=== PATIENT | male | born 1945 | race Caucasian/White ===

== ENCOUNTER 2021-12-20 09:29 | Emergency (ER) | payer MEDICARE, OTHER ==
--- NOTE | 2021-12-20 09:38 | ERPHSYRPT ---
- History of Present Illness Time Seen by Provider: 12/20/21 09:38 Source: patient Exam Limitations: no limitations Physician History: This is a 76-year-old white male patient of Dr. Pacheco who presents with right posterior lateral rib pain. Patient fell on Thursday prior to this evaluation and hit his right posterior lateral ribs. Patient states that he normally has a cough which is productive but clear. He has been coughing in the last few days and he is having significant pain in the area where he hit his ribs. Of concern, his sputum changed to a yellow color, thicker type of sputum. Patient only takes an aspirin a day. He is not on any other medications per his report. Timing/Duration: day(s) (3) Severity: mild Modifying Factors: Improves With: movement (To moderate) Associated Symptoms: cough, No chills, No fever Allergies/Adverse Reactions: No Known Drug Allergies Allergy (Verified 12/20/21 09:45) Home Medications: Aspirin EC 81 mg [Ecotrin 81 mg] 81 mg PO DAILY 12/20/21 [History] Travel Risk - International Travel Have you traveled outside of the country in past 3 weeks: No - Coronavirus Screening Are you exhibiting any of the following symptoms?: No Close contact with a COVID-19 positive Pt in past 14-21 Days: No - Review of Systems Constitutional: No Symptoms Eyes: No Symptoms Ears, Nose, & Throat: No Symptoms Respiratory: Cough, No Dyspnea Cardiac: No Symptoms Abdominal/Gastrointestinal: No Symptoms Genitourinary Symptoms: No Symptoms Musculoskeletal: Fall, Injury (Right posterior lateral ribs) Skin: Other (Ecchymosis of skin overlying the right posterior lateral rib area) Neurological: No Symptoms Psychological: No Symptoms Endocrine: No Symptoms Hematologic/Lymphatic: No Symptoms Immunological/Allergic: No Symptoms All Other Systems: Reviewed and Negative - Past Medical History Pertinent Past Medical History: No - Nursing Vital Signs Nursing Vital Signs: Initial Vital Signs Temperature 96.7 F 12/20/21 09:36 Pulse Rate 96 H 12/20/21 09:36 Respiratory Rate 22 12/20/21 09:36 Blood Pressure 152/99 12/20/21 09:36 O2 Sat by Pulse Oximetry 96 12/20/21 09:36 Pain Scale Pain Intensity 4 - Physical Exam General Appearance: no apparent distress, alert, thin Eye Exam: PERRL/EOMI, eyes nml inspection Ears, Nose, Throat Exam: normal ENT inspection, moist mucous membranes Neck Exam: normal inspection, non-tender, supple, full range of motion Respiratory Exam: normal breath sounds, lungs clear, airway intact, No chest tenderness, No respiratory distress Cardiovascular Exam: regular rate/rhythm, normal heart sounds, normal peripheral pulses Gastrointestinal/Abdomen Exam: soft, normal bowel sounds, No tenderness Rectal Exam: not done Back Exam: normal range of motion, vertebral tenderness, other (Tenderness in the right posterior lateral rib area. There is ecchymosis that is mild in that area as well.), No CVA tenderness Extremity Exam: normal inspection, normal range of motion, pelvis stable Neurologic Exam: alert, oriented x 3, cooperative, moisture tester II-XII nml as tested, normal mood/affect, nml cerebellar function, nml station & gait, sensation nml Skin Exam: ecchymosis (Of skin as above) Lymphatic Exam: No adenopathy SpO2 Interpretation: normal O2 Delivery: Room Air - Course Nursing assessment & vital signs reviewed: Yes Ordered Tests: Active Orders 24 hr Category Date Time Status CHEST 2 VIEWS (PA AND LAT) Stat Exams 12/20/21 10:02 Completed RIBS UNILATERAL Stat Exams 12/20/21 09:58 Completed - Progress Progress: unchanged, pain not gone completely Progress Note: 12/20/21 10:48 Chest x-ray shows no acute cardiopulmonary process. Right rib x-rays show nondisplaced acute rib fracture anterior seventh rib. There is also minimally displaced acute fractures of the posterior eighth through 12th rib without hemothorax or pneumothorax present. Counseled pt/family regarding: diagnosis, need for follow-up, rad results - Departure Departure Disposition: Home Clinical Impression: Right rib fracture Condition: Stable Critical Care Time: No Referrals: VIDHYA PACHECO MD [Primary Care Provider] - Follow up/PCP as directed Additional Instructions: Take your antibiotics and pain medication as prescribed. Do not ingest alcohol while taking these medications. Follow-up with your primary care physician for further management. Prescriptions: Oxycodone HCl/Acetaminophen [Percocet 5-325 mg Tablet] 1 each PO Q8H PRN PRN #6 tablet MDD 3 PRN Reason: Moderate To Severe Pain Cefdinir 300 mg PO BID #14 cap
--- NOTE | 2021-12-20 10:33 | XRAY ---
Indication: Pain following fall 4 days ago. Comparison: None 2 view right ribs demonstrates nondisplaced acute fracture anterior 7 rib and minimally displaced acute fractures posterior 8-12 ribs without hemothorax or pneumothorax. Elsewhere osteopenia, old posterior 7 rib fracture, and mild degenerative changes throughout spine.
--- NOTE | 2021-12-20 10:36 | XRAY ---
Indication: Pain following fall 4 days ago. Cough. Comparison: November 30, 2021. PA/lateral chest remains hyperinflated and clear. Heart not enlarged. Bony thorax intact again with osteopenia, degenerative changes, scoliosis, remote T6 compression fracture, and bilateral rib fractures. Impression: Right acute rib fractures reported separately. Otherwise nonacute hyperinflated chest.
[2021-12-20 11:37] VITALS: BP 148/76; PULSE 88; O2SAT 97
== END 2021-12-20 11:37 | disposition home or self-care (01) ==
LOC: ED 09:29
DX: S22.41XA Multiple fractures of ribs, right side, initial encounter for closed fracture (principal); W19.XXXA Unspecified fall, initial encounter; R07.81 Pleurodynia; R05.3 Chronic cough; Z79.891 Long term (current) use of opiate analgesic
CPT/HCPCS: 71046; 71100; 99283

== ENCOUNTER 2024-01-17 16:42 | Inpatient (IN) | payer MEDICARE ==
[2024-01-17] MEDS ORDERED: DUONEB 0.5-3 MG/3 ml Neb IH ONE (16:49)
[2024-01-17] MEDS: DUONEB 0.5-3 MG/3 ml Neb IH ONE (17:00)
[2024-01-17] MEDS: solu-MEDROL 125 MG, Sterile H2O 10 ml 2 ML IV ONE (17:06)
[2024-01-17] MEDS ORDERED: Sterile H2O 10 ml IJ ONE (17:06)
[2024-01-17] MEDS ORDERED: solu-MEDROL ONE (17:06)
--- NOTE | 2024-01-17 17:10 | ERPHSYRPT ---
- History of Present Illness Time Seen by Provider: 01/17/24 16:59 Source: patient Exam Limitations: no limitations Patient Subjective Stated Complaint: PT states "I have been gettting short of breath on and off all month. I cannot lay flat and I really get short of breath when I move. Triage Nursing Assessment: Pt presented alert and oriented X 3, skin pwd. Pt tachypniec pt able to speak in five to six word sentences. PT gets more short of breath the more he speaks. Physician History: 78 years old male with history of hypertension, COPD presented in the ER with almost 1 month history of increasing dyspnea on exertion. Patient reports getting short of breath with few steps and now getting short of breath even at resting. He cannot lie flat because he cannot breathe and has to recline up. Reports some substernal chest discomfort off and on as well. Does report having minimal productive cough. No fever or chills reported. Denies any history of coronary artery disease or congestive heart failure. Denies any fever or chills. Patient oxygen saturation is 86% on room air on presentation, tachypneic and can hardly complete 1 full sentence. Placed on 4 L oxygen with saturation improved in upper 90s and feeling much better after DuoNeb. Allergies/Adverse Reactions: No Known Drug Allergies Allergy (Verified 12/20/21 09:45) Home Medications: Aspirin EC 81 mg [Ecotrin 81 mg] 81 mg PO DAILY 01/17/24 [History] Hx Tetanus, Diphtheria Vaccination/Date Given: No Hx Influenza Vaccination/Date Given: No Hx Pneumococcal Vaccination/Date Given: No Immunizations Up to Date: No Travel Risk - International Travel Have you traveled outside of the country in past 3 weeks: No - Emerging Infectious Disease Are you exhibiting symptoms associated with any current EIDs: No - Review of Systems Constitutional: Fatigue Eyes: No Symptoms Ears, Nose, & Throat: No Symptoms Respiratory: Cough, Dyspnea, Dyspnea on Exertion (MCLEAN) Cardiac: Chest Pain Abdominal/Gastrointestinal: No Symptoms Genitourinary Symptoms: No Symptoms Musculoskeletal: Back Pain Skin: No Symptoms Neurological: No Symptoms Psychological: No Symptoms Endocrine: No Symptoms Hematologic/Lymphatic: No Symptoms - Past Medical History Pertinent Past Medical History: Yes Other Medical History: stage 4 prostate cancer - Past Surgical History Past Surgical History: No - Social History Smoking Status: Current some day smoker How long have you smoked: years Exposure to second hand smoke: Yes Drug Use: marijuana Patient Lives Alone: Yes - Social Determinants of Health Will the patient participate in the screening: Declined to provide - Nursing Vital Signs Nursing Vital Signs: Initial Vital Signs Temperature 96.8 F 01/17/24 16:43 Pulse Rate 101 H 01/17/24 16:43 Respiratory Rate 28 H 01/17/24 16:43 Blood Pressure 129/83 01/17/24 16:43 O2 Sat by Pulse Oximetry 86 L 01/17/24 16:43 Pain Scale Pain Intensity 0 - Physical Exam General Appearance: moderate distress Eye Exam: PERRL/EOMI Ears, Nose, Throat Exam: hearing grossly normal Neck Exam: normal inspection, supple, full range of motion Respiratory Exam: respiratory distress, diminished breath sounds, accessory muscle use, rhonchi, wheezing Cardiovascular/Chest Exam: normal heart sounds, regular rate/rhythm Abdominal/Gastrointestinal Exam: soft, normal bowel sounds, No tenderness Extremity Exam: non-tender, normal range of motion Neurologic Exam: alert, oriented x 3, cooperative, acid dipper II-XII nml as tested Skin Exam: normal color SpO2 Interpretation: O2 applied SpO2: 100 O2 Delivery: Nasal Cannula (4 L) Ordered Tests: Medication Summary Generic Name Dose Route Start Last Admin Trade Name Freq PRN Reason Stop Dose Admin Acetaminophen 325 mg 01/17/24 23:42 Acetaminophen 325 Mg Tablet PO 02/16/24 23:41 Q4H PRN PRN PAIN, FEVER, HEADACHE Albuterol/Ipratropium 3 ml 01/18/24 01:00 01/21/24 19:04 Ipratropium/Albuterol Sulfate 3 Ml Ampul.Neb IH 02/17/24 00:59 3 ml Q6HRT JACQUE Administration Aspirin 81 mg 01/18/24 10:00 01/21/24 10:03 Aspirin 81 Mg Tablet.Ec PO 02/17/24 09:59 81 mg DAILY JACQUE Administration Docusate Sodium 100 mg 01/19/24 22:00 01/21/24 22:04 Docusate Sodium 100 Mg Capsule PO 02/18/24 21:59 Not Given BID JACQUE Furosemide 40 mg 01/18/24 08:00 01/21/24 19:32 Furosemide 40 Mg/4 Ml Vial IV 02/17/24 07:59 40 mg Q12H JACQUE Administration Heparin Sodium (Beef Lung) 2,000 unit 01/21/24 14:46 Heparin 5000 Units/0.5 Ml 5,000 Unit/0.5 Ml Syr IV 02/20/24 14:45 PRN PRN PTT < 35 Ceftriaxone Sodium 1 gm in 100 mls @ 200 mls/hr 01/18/24 22:00 01/21/24 22:00 Rocephin 1 Gm / 100 Ml Nacl IV 02/17/24 21:59 200 mls/hr Q24H22 JACQUE Administration Amiodarone HCl/Dextrose 360 mg in 200 mls @ 33 mls/hr 01/21/24 11:30 01/21/24 17:21 Nexterone 360 Mg/200 Ml Bag IV 02/20/24 11:29 17 mls/hr .Q6H4M JACQUE 17 mls/hr Titration Protocol Heparin Sodium/Dextrose 25,000 units in 250 mls @ 8.04 mls/hr 01/21/24 14:00 01/21/24 18:29 Heparin 25,000 Units/D5w: Use Order Set Margarita IV 02/20/24 13:59 12 units/kg/hr .Q24H JACQUE 8.04 mls/hr Titration Protocol 12 UNITS/KG/HR Lisinopril 5 mg 01/21/24 10:00 01/21/24 10:03 Lisinopril 5 Mg Tablet PO 02/20/24 09:59 5 mg DAILY JACQUE Administration Metoprolol Succinate 12.5 mg 01/21/24 10:00 01/21/24 10:02 Metoprolol Succinate 25 Mg Xl Tab PO 02/20/24 09:59 12.5 mg DAILY JACQUE Administration Pantoprazole Sodium 40 mg 01/18/24 10:00 01/21/24 10:02 Protonix (Pantoprazole) 40 Mg Tablet PO 02/17/24 09:59 40 mg DAILY JACQUE Administration Polyethylene Glycol 17 gm 01/19/24 17:59 01/20/24 09:50 Polyethylene Glycol 3350 17 Gm Packet PO 02/18/24 17:58 17 gm QDP PRN Administration CONSTIPATION Prednisone 20 mg 01/20/24 10:00 01/21/24 22:00 Prednisone 20 Mg Tablet PO 02/19/24 09:59 20 mg BID JACQUE Administration Simvastatin 40 mg 01/20/24 22:00 01/21/24 22:00 Simvastatin 20 Mg Tablet PO 02/19/24 21:59 40 mg HS JACQUE Administration Spironolactone 12.5 mg 01/22/24 10:00 Spironolactone 25 Mg Tablet PO 02/21/24 09:59 DAILY JACQUE Discontinued Medications Generic Name Dose Route Start Last Admin Trade Name Jessica PRN Reason Stop Dose Admin Albuterol/Ipratropium Confirm 01/17/24 16:49 Ipratropium/Albuterol Sulfate 3 Ml Ampul.Neb Administered 01/17/24 16:50 Dose 3 ml IH .STK-MED ONE Albuterol/Ipratropium 3 ml 01/17/24 16:59 01/17/24 17:00 Ipratropium/Albuterol Sulfate 3 Ml Ampul.Neb IH 01/17/24 17:00 3 ml STAT ONE Administration Methylprednisolone Sodium 0 mg 01/17/24 16:59 01/17/24 17:06 Succinate 125 mg/ Sterile IV 01/17/24 17:00 125 mg Water 2 ml STAT ONE Administration Methylprednisolone Sodium 0 mg 01/18/24 10:00 01/19/24 22:18 Succinate 20 mg/ Sterile Water IV 02/17/24 09:59 10 mg 1 ml Q12HT JACQUE Administration Digoxin Confirm 01/21/24 11:16 Digoxin 0.5 Mg/2 Ml Injection Administered 01/21/24 11:17 Dose 0.5 mg .ROUTE .STK-MED ONE Enoxaparin Sodium 40 mg 01/18/24 10:00 01/21/24 10:02 Enoxaparin Sodium 40 Mg/0.4 Ml Syringe SQ 02/17/24 09:59 40 mg DAILY JACQUE Administration Furosemide 40 mg 01/17/24 22:31 01/17/24 22:41 Furosemide 40 Mg/4 Ml Vial IV 01/17/24 22:32 Not Given STAT ONE Furosemide 40 mg 01/17/24 23:45 01/18/24 00:13 Furosemide 40 Mg/4 Ml Vial IV 02/16/24 23:44 Not Given Q12H JACQUE Heparin Sodium (Beef Lung) 4,000 unit 01/21/24 13:51 01/21/24 14:15 Heparin 5000 Units/0.5 Ml 5,000 Unit/0.5 Ml Syr 60 unit/kg (4000 unit) 01/21/24 13:52 4,000 unit IV Administration STAT STA Azithromycin 500 mg in 250 mls @ 250 mls/hr 01/17/24 19:49 01/17/24 21:37 Zithromax 500 Mg/ 250 Ml Nacl Premix IV 01/17/24 20:48 Infused STAT STA Infusion Ceftriaxone Sodium 2 gm in 100 mls @ 200 mls/hr 01/17/24 19:49 01/17/24 20:33 Rocephin 2 Gm/100 Ml Nacl IV 01/17/24 20:18 Infused STAT ONE Infusion Ceftriaxone Sodium Confirm 01/17/24 19:56 Rocephin 2 Gm/100 Ml Nacl Administered 01/17/24 19:57 Dose 2 gm in 100 mls @ ud IV .STK-MED ONE Azithromycin Confirm 01/17/24 20:13 Zithromax 500 Mg/ 250 Ml Nacl Premix Administered 01/17/24 20:14 Dose 500 mg in 250 mls @ ud IV .STK-MED ONE Sodium Chloride Confirm 01/21/24 11:19 Sodium Chloride 0.9% 1000 Ml Administered 01/21/24 11:20 Dose 1,000 mls @ ud .ROUTE .STK-MED ONE Methylprednisolone Sodium Succinate Confirm 01/17/24 17:06 Methylprednis Sod Succ 125 Mg/2 Ml Vial Administered 01/17/24 17:07 Dose 125 mg .ROUTE .STK-MED ONE Metoprolol Tartrate 5 mg 01/21/24 11:02 01/21/24 11:32 Metoprolol Tartrate 5 Mg/5 Ml Vial IV 01/21/24 11:03 5 mg STAT ONE Administration Metoprolol Tartrate Confirm 01/21/24 11:02 Metoprolol Tartrate 5 Mg/5 Ml Vial Administered 01/21/24 11:03 Dose 5 mg IV .STK-MED ONE Sterile Water Confirm 01/17/24 17:06 Water For Injection,Sterile 10 Ml Vial Administered 01/17/24 17:07 Dose 10 ml IJ .STK-MED ONE Lab/Rad Data: Laboratory Result Diagrams 01/18/24 03:00 01/18/24 03:00 Laboratory Results 01/18/24 01/18/24 01/18/24 Range/Units 03:00 03:00 03:00 WBC 8.9 (4.23-9.07) x10^3/uL RBC 4.23 L (4.63-6.08) x10^6/uL Hgb 13.9 (13.7-17.5) g/dL Hct 39.6 L (40.1-51.0) % MCV 93.6 H (79.0-92.2) fL MCH 32.9 H (25.7-32.2) pg MCHC 35.1 (32.3-36.5) g/dL RDW 13.1 (11.6-14.4) % Plt Count 126 L (163-337) x10^3/uL MPV 11.4 (9.4-12.4) fL Gran % 72.0 H (34.0-67.9) % Immature Gran % (Auto) 1.8 H (0.001-0.429) % Nucleat RBC Rel Count 0.0 (0.00-0.2) % Eos # (Auto) 0.01 L (0.04-0.54) x10^3/uL Immature Gran # (Auto) 0.16 H (0.001-0.031) x10^3u/L Absolute Lymphs (auto) 2.07 (1.32-3.57) x10^3/uL Absolute Monos (auto) 0.22 L (0.30-0.82) x10^3/uL Absolute Nucleated RBC 0.00 (0.00-0.012) x10^3u/L Lymphocytes % 23.4 (21.8-53.1) % Monocytes % 2.5 L (5.3-12.2) % Eosinophils % 0.1 L (0.8-7.0) % Basophils % 0.2 (0.2-1.2) % Absolute Granulocytes 6.37 H (1.78-5.38) x10^3/uL Basophils # 0.02 (0.01-0.08) x10^3/uL D-Dimer (0.0-0.50) mg/L Puncture Site pCO2 (35-45) mmHg pO2 (75-100) mmHg Base Excess (-2.0-2.0) O2 Saturation (94-100) g/dF ABG pH (7.35-7.45) ABG HCO3 (22-28) ABG O2 Sat (Measured) (95-100) % Delon Test A-a Gradient a/A Ratio Hemoglobin Carboxyhemoglobin (0.0-6.9) % THgb Methemoglobin (1.4-1.5) % Potassium 4.9 (3.5-5.1) Temperature C POC O2 Flow Rate % Sodium 125 L (135-145) mmol/L Chloride 96 L (98-107) mmol/L Carbon Dioxide 22 (22-30) mmol/L Anion Gap 12.5 (5-15) MEQ/L BUN 9 (9-20) mg/dL Creatinine 0.51 L (0.66-1.25) mg/dL Estimated GFR 102.5 ML/MIN Glucose 157 H (74-106) mg/dL Lactic Acid (0.4-2.0) Calcium 8.9 (8.4-10.2) mg/dL Magnesium (1.6-2.3) mg/dL Total Bilirubin 0.50 (0.2-1.3) mg/dL AST 48 (17-59) U/L ALT 32 (0-50) U/L Alkaline Phosphatase 146 H (38-126) U/L Troponin I 0.056 H* (0.000-0.033) ng/mL NT-Pro-B Natriuret Pep 98443 (<300) pg/mL Serum Total Protein 5.8 L (6.3-8.2) g/dL Albumin 3.4 L (3.5-5.0) g/dL Influenza Type A Ag (NEGATIVE) Influenza Type B Ag (NEGATIVE) RSV (PCR) (NEGATIVE) SARS-CoV-2 (PCR) (NEGATIVE) 01/17/24 01/17/24 01/17/24 Range/Units 20:58 17:24 17:24 WBC (4.23-9.07) x10^3/uL RBC (4.63-6.08) x10^6/uL Hgb (13.7-17.5) g/dL Hct (40.1-51.0) % MCV (79.0-92.2) fL MCH (25.7-32.2) pg MCHC (32.3-36.5) g/dL RDW (11.6-14.4) % Plt Count (163-337) x10^3/uL MPV (9.4-12.4) fL Gran % (34.0-67.9) % Immature Gran % (Auto) (0.001-0.429) % Nucleat RBC Rel Count (0.00-0.2) % Eos # (Auto) (0.04-0.54) x10^3/uL Immature Gran # (Auto) (0.001-0.031) x10^3u/L Absolute Lymphs (auto) (1.32-3.57) x10^3/uL Absolute Monos (auto) (0.30-0.82) x10^3/uL Absolute Nucleated RBC (0.00-0.012) x10^3u/L Lymphocytes % (21.8-53.1) % Monocytes % (5.3-12.2) % Eosinophils % (0.8-7.0) % Basophils % (0.2-1.2) % Absolute Granulocytes (1.78-5.38) x10^3/uL Basophils # (0.01-0.08) x10^3/uL D-Dimer (0.0-0.50) mg/L Puncture Site pCO2 (35-45) mmHg pO2 (75-100) mmHg Base Excess (-2.0-2.0) O2 Saturation (94-100) g/dF ABG pH (7.35-7.45) ABG HCO3 (22-28) ABG O2 Sat (Measured) (95-100) % Delon Test A-a Gradient a/A Ratio Hemoglobin Carboxyhemoglobin (0.0-6.9) % THgb Methemoglobin (1.4-1.5) % Potassium (3.5-5.1) Temperature C POC O2 Flow Rate % Sodium (135-145) mmol/L Chloride (98-107) mmol/L Carbon Dioxide (22-30) mmol/L Anion Gap (5-15) MEQ/L BUN (9-20) mg/dL Creatinine (0.66-1.25) mg/dL Estimated GFR ML/MIN Glucose (74-106) mg/dL Lactic Acid (0.4-2.0) Calcium (8.4-10.2) mg/dL Magnesium (1.6-2.3) mg/dL Total Bilirubin (0.2-1.3) mg/dL AST (17-59) U/L ALT (0-50) U/L Alkaline Phosphatase (38-126) U/L Troponin I 0.079 H* (0.000-0.033) ng/mL NT-Pro-B Natriuret Pep 26696 (<300) pg/mL Serum Total Protein (6.3-8.2) g/dL Albumin (3.5-5.0) g/dL Influenza Type A Ag NEGATIVE (NEGATIVE) Influenza Type B Ag NEGATIVE (NEGATIVE) RSV (PCR) NEGATIVE (NEGATIVE) SARS-CoV-2 (PCR) NEGATIVE (NEGATIVE) 01/17/24 01/17/24 01/17/24 Range/Units 17:23 17:23 17:23 WBC (4.23-9.07) x10^3/uL RBC (4.63-6.08) x10^6/uL Hgb (13.7-17.5) g/dL Hct (40.1-51.0) % MCV (79.0-92.2) fL MCH (25.7-32.2) pg MCHC (32.3-36.5) g/dL RDW (11.6-14.4) % Plt Count (163-337) x10^3/uL MPV (9.4-12.4) fL Gran % (34.0-67.9) % Immature Gran % (Auto) (0.001-0.429) % Nucleat RBC Rel Count (0.00-0.2) % Eos # (Auto) (0.04-0.54) x10^3/uL Immature Gran # (Auto) (0.001-0.031) x10^3u/L Absolute Lymphs (auto) (1.32-3.57) x10^3/uL Absolute Monos (auto) (0.30-0.82) x10^3/uL Absolute Nucleated RBC (0.00-0.012) x10^3u/L Lymphocytes % (21.8-53.1) % Monocytes % (5.3-12.2) % Eosinophils % (0.8-7.0) % Basophils % (0.2-1.2) % Absolute Granulocytes (1.78-5.38) x10^3/uL Basophils # (0.01-0.08) x10^3/uL D-Dimer > 35.20 H* (0.0-0.50) mg/L Puncture Site pCO2 (35-45) mmHg pO2 (75-100) mmHg Base Excess (-2.0-2.0) O2 Saturation (94-100) g/dF ABG pH (7.35-7.45) ABG HCO3 (22-28) ABG O2 Sat (Measured) (95-100) % Delon Test A-a Gradient a/A Ratio Hemoglobin Carboxyhemoglobin (0.0-6.9) % THgb Methemoglobin (1.4-1.5) % Potassium 4.6 (3.5-5.1) Temperature C POC O2 Flow Rate % Sodium 123 L (135-145) mmol/L Chloride 92 L (98-107) mmol/L Carbon Dioxide 23 (22-30) mmol/L Anion Gap 12.5 (5-15) MEQ/L BUN 9 (9-20) mg/dL Creatinine 0.58 L (0.66-1.25) mg/dL Estimated GFR 98.6 ML/MIN Glucose 102 (74-106) mg/dL Lactic Acid (0.4-2.0) Calcium 9.4 (8.4-10.2) mg/dL Magnesium 1.8 (1.6-2.3) mg/dL Total Bilirubin 0.90 (0.2-1.3) mg/dL AST 55 (17-59) U/L ALT 33 (0-50) U/L Alkaline Phosphatase 179 H (38-126) U/L Troponin I 0.084 H* (0.000-0.033) ng/mL NT-Pro-B Natriuret Pep (<300) pg/mL Serum Total Protein 6.4 (6.3-8.2) g/dL Albumin 3.9 (3.5-5.0) g/dL Influenza Type A Ag (NEGATIVE) Influenza Type B Ag (NEGATIVE) RSV (PCR) (NEGATIVE) SARS-CoV-2 (PCR) (NEGATIVE) 01/17/24 01/17/24 Range/Units 17:23 16:59 WBC 10.5 H (4.23-9.07) x10^3/uL RBC 4.69 (4.63-6.08) x10^6/uL Hgb 15.3 (13.7-17.5) g/dL Hct 43.6 (40.1-51.0) % MCV 93.0 H (79.0-92.2) fL MCH 32.6 H (25.7-32.2) pg MCHC 35.1 (32.3-36.5) g/dL RDW 13.1 (11.6-14.4) % Plt Count 146 L (163-337) x10^3/uL MPV 12.0 (9.4-12.4) fL Gran % 57.5 (34.0-67.9) % Immature Gran % (Auto) 1.3 H (0.001-0.429) % Nucleat RBC Rel Count 0.0 (0.00-0.2) % Eos # (Auto) 0.48 (0.04-0.54) x10^3/uL Immature Gran # (Auto) 0.14 H (0.001-0.031) x10^3u/L Absolute Lymphs (auto) 2.53 (1.32-3.57) x10^3/uL Absolute Monos (auto) 1.25 H (0.30-0.82) x10^3/uL Absolute Nucleated RBC 0.00 (0.00-0.012) x10^3u/L Lymphocytes % 24.1 (21.8-53.1) % Monocytes % 11.9 (5.3-12.2) % Eosinophils % 4.6 (0.8-7.0) % Basophils % 0.6 (0.2-1.2) % Absolute Granulocytes 6.05 H (1.78-5.38) x10^3/uL Basophils # 0.06 (0.01-0.08) x10^3/uL D-Dimer (0.0-0.50) mg/L Puncture Site RIGHT BRACHIAL pCO2 26 L (35-45) mmHg pO2 96 (75-100) mmHg Base Excess -5.8 L (-2.0-2.0) O2 Saturation 96.6 (94-100) g/dF ABG pH 7.42 (7.35-7.45) ABG HCO3 16.9 L* (22-28) ABG O2 Sat (Measured) 99.1 (95-100) % Delon Test NOT APPLICABLE A-a Gradient 71 a/A Ratio 0.57 Hemoglobin 15.2 Carboxyhemoglobin 1.6 (0.0-6.9) % THgb Methemoglobin 0.8 L (1.4-1.5) % Potassium 4.4 (3.5-5.1) Temperature 37.0 C POC O2 Flow Rate 28 % Sodium (135-145) mmol/L Chloride (98-107) mmol/L Carbon Dioxide (22-30) mmol/L Anion Gap (5-15) MEQ/L BUN (9-20) mg/dL Creatinine (0.66-1.25) mg/dL Estimated GFR ML/MIN Glucose (74-106) mg/dL Lactic Acid 1.1 (0.4-2.0) Calcium (8.4-10.2) mg/dL Magnesium (1.6-2.3) mg/dL Total Bilirubin (0.2-1.3) mg/dL AST (17-59) U/L ALT (0-50) U/L Alkaline Phosphatase (38-126) U/L Troponin I (0.000-0.033) ng/mL NT-Pro-B Natriuret Pep (<300) pg/mL Serum Total Protein (6.3-8.2) g/dL Albumin (3.5-5.0) g/dL Influenza Type A Ag (NEGATIVE) Influenza Type B Ag (NEGATIVE) RSV (PCR) (NEGATIVE) SARS-CoV-2 (PCR) (NEGATIVE) - Progress Progress: improved, re-examined Air Movement: fair Progress Note: 01/17/24 22:28 78 years old is evaluated for worsening shortness of breath/dyspnea on exertion for almost a month. Patient was hypoxic and in mild to moderate distress on presentation with sats around mid 80s, given Solu-Medrol/DuoNeb and placed on 4 L oxygen with improvement in work of breathing. Patient chest x-ray showed some effusion and mild worsening of right-sided opacities when compared with previous, reviewed by me with official report pending. Has mild cardiomegaly, initial EKG showed bundle branch block with early repolarization and a troponin of 0.164. Patient is pain-free on reevaluation after breathing treatment. Has no lower extremity swelling but has a BNP of 13 K, I believe patient has some element of CHF as well. Will give a dose of Lasix. Has elevated D-dimer but CTA chest is negative for PE, does have groundglass opacity, pulmonary interstitial disease/fibrosis and questionable CHF. White count is 10, chemistries with sodium of 123 which is a little drop from 125 almost 12 days ago. He is given a dose of antibiotics as well for his COPD exacerbation, blood cultures are pending. I believe patient has a combination of COPD and new onset CHF exacerbation. Discussed with Dr. Benoit and patient is admitted. I have shared the results of workup with patient and daughter, plan of admission which they understand and agree. Blood Culture(s) Obtained: Yes Antibiotics given: Yes Discussed with DrIsi: Other (Dr. Benoit) Will see patient in: hospital (full admit) Counseled pt/family regarding: lab results, diagnosis, need for follow-up, rad results - Departure Departure Disposition: In-patient Admission Clinical Impression: COPD exacerbation, Hyponatremia, New onset of congestive heart failure Respiratory failure Qualifiers: Chronicity: acute Respiratory failure complication: hypoxia Qualified Code(s): J96.01 - Acute respiratory failure with hypoxia Condition: Stable Critical Care Time: Yes Critical Care Time(excluding separately billable procedures): Critical 30-74 mins
[2024-01-17 17:19] LABS: A-aADO2 71; ABG HEMOGLOBIN 15.2; ABG POTASSIUM 4.4 (3.5-5.1); ABG SITE RIGHT BRACHIAL; ARTERIAL BLD GAS O2 SATURATION 99.1 % (95-100); ARTERIAL BLOOD GAS BASE EXCESS -5.8 (-2.0-2.0); ARTERIAL BLOOD GAS FIO2 28 %; ARTERIAL BLOOD GAS PCO2 26 mmHg (35-45); ARTERIAL BLOOD GAS PO2 96 mmHg (75-100); ARTERIAL BLOOD GAS pH 7.42 (7.35-7.45); CARBOXYHEMOGLOBIN 1.6 % THgb (0.0-6.9); HCO3- 16.9 (22-28); HGB O2 SAT 96.6 g/dF (94-100); Lactic Acid 1.1 (0.4-2.0); Methhemoglobin 0.8 % (1.4-1.5); paO2 pAO1 0.57
[2024-01-17 17:32] LABS: Absolute Neutrophil Ct (ANC) 6.05 x10^3/uL (1.78-5.38); BASOPHIL % 0.6 % (0.2-1.2); Basophil (Absolute #) 0.06 x10^3/uL (0.01-0.08); Eosinophil % 4.6 % (0.8-7.0); Eosinophil (Absolute #) 0.48 x10^3/uL (0.04-0.54); Hematocrit 43.6 % (40.1-51.0); Hemoglobin 15.3 g/dL (13.7-17.5); IMMATURE GRAN # 0.14 x10^3u/L (0.001-0.031); IMMATURE GRAN % 1.3 % (0.001-0.429); Lymphocyte (Absolute #) 2.53 x10^3/uL (1.32-3.57); Lymphocytes % 24.1 % (21.8-53.1); Mean Corpuscular Hemoglobin 32.6 pg (25.7-32.2); Mean Corpuscular Hgb Concent. 35.1 g/dL (32.3-36.5); Monocyte (Absolute #) 1.25 x10^3/uL (0.30-0.82); Monocytes % 11.9 % (5.3-12.2); Neutrophil % 57.5 % (34.0-67.9); Platelet Count 146 x10^3/uL (163-337); Red Blood Count 4.69 x10^6/uL (4.63-6.08); Red Cell Distribution Width 13.1 % (11.6-14.4); White Blood Count 10.5 x10^3/uL (4.23-9.07)
[2024-01-17 17:45] LABS: ALBUMIN 3.9 g/dL (3.5-5.0); ANION GAP 12.5 MEQ/L (5-15); BILIRUBIN,TOTAL 0.9 mg/dL (0.2-1.3); Calcium 9.4 mg/dL (8.4-10.2); Creatinine 1 0.58 mg/dL (0.66-1.25); EST GLOMERULAR FILTRATION RATE 98.6 ML/MIN; MAGNESIUM 1.8 mg/dL (1.6-2.3); Potassium 4.6 mmol/L (3.5-5.1); Total Protein 6.4 g/dL (6.3-8.2)
[2024-01-17 18:09] LABS: INFLUENZA A NEGATIVE (NEGATIVE); INFLUENZA B NEGATIVE (NEGATIVE); RESPIRATORY SYNCTIAL VIRUS NEGATIVE (NEGATIVE); SARS-CoV-2 Xpert Express NEGATIVE (NEGATIVE)
[2024-01-17] MEDS: ROCEPHIN 2 GM/100 ML NACL 2 GM/100 ML IVPB IV ONE (19:56)
[2024-01-17] MEDS ORDERED: ROCEPHIN 2 GM/100 ML NACL 2 GM/100 ML IVPB IV ONE (19:56)
[2024-01-17] MEDS ORDERED: Zithromax 500 MG/ 250 ML NaCl Premix 500 MG/250 ML IVPB IV ONE (20:13)
[2024-01-17] MEDS: Zithromax 500 MG/ 250 ML NaCl Premix 500 MG/250 ML IVPB IV STA (20:32)
--- NOTE | 2024-01-17 20:38 | XRAY ---
CLINICAL HISTORY: sob, PE? COMPARISON: 01/08/2024. TECHNIQUE: Contiguous 3.[address] angiographic images of the chest for PE were acquired with the administration of intravenous contrast 80 cc Isovue 370. Coronal and sagittal reconstructions were obtained. One of these 3D techniques was utilized: Maximum Intensity Pixel (MIP), 3D Reconstructed Images, Volume Rendered Images, Surface Shaded Rendering. One of the following dose reduction techniques were utilized for this exam: Automated exposure control, adjustment of the mA and/or kV according to patient size, and use of iterative reconstruction. CTDI: 42.96 mGy DLP: 500.99 mGy-cm. FINDINGS: Aorta: The thoracic aorta is normal in caliber. No evidence of aneurysm, or dissection. Aortic arch and descending thoracic aorta shows atherosclerotic changes. Pulmonary Arteries: Pulmonary arteries are normal in size and opacification. No evidence of pulmonary embolism. No stenosis or filling defects. Superior Vena Cava (SVC) and Inferior Vena Cava (IVC): Normal opacification and caliber. No evidence of thrombus or obstruction. Mediastinum: Few nonspecific mediastinal nodes. Heart: Mildly enlarged in size. No pericardial effusion. Lungs: Mild bilateral pleural effusion with subsegmental atelectasis. Focal area of groundglass haziness with interstitial thickening in right upper lobe along the major fissure in the posterior segment. Focal areas of subpleural fibrosis and atelectasis seen in bilateral lung perez. Bones: Exaggeration of thoracic kyphosis with advanced degenerative changes. Soft Tissues: Normal appearance of the visualized soft tissues. Small old calcified granuloma in left lobe of the liver with suggestion of minimal free fluid in the left upper quadrant. IMPRESSION: 1. No evidence of Acute pulmonary thromboembolism. 2. Mild cardiomegaly with bilateral pleural effusion, and the possibility of decompensated heart disease need to be considered. Recommended echocardiographic and clinical correlation. 3. Focal area of groundglass haziness with interstitial thickening in right upper lobe along the major fissure in the posterior segment. Possible infectious/inflammatory etiology. 4. Focal areas of subpleural fibrosis and atelectasis are seen in bilateral lung perez. Electronically Signed by: Bart Hernandez MD. (01/17/2024 20:32:44 EDT)
[2024-01-17] MEDS: Lasix 40 MG/4 ML IV ONE (22:41)
--- NOTE | 2024-01-17 23:33 | PCM.HP ---
History of Present Illness - Chief Complaint Chief Complaint: shortness of breath Date: 01/17/24 History of Present Illness: Mr. SERRATO is a 78 year old male with no significant past medical history who presents to the hospital with complaints of increasing shortness of breath. Upon arrival, he was dyspneic and required supplemental O2. Initial labs were notable for a markedly elevated d-dimer and positive troponin. CT chest with IV contrast was done that demonstrated ground glass opacities and bilateral pleural effusions. Sodium level came back low at 123. He is evaluated in the ER, where he is resting in bed, awake, appears comfortable and non-toxic. No fever/chills. No chest pain or palpitations. No nausea, vomiting or diarrhea. No dysuria, hematuria or frequency. - Review of Systems Constitutional: Fatigue, No Fever, No Chills Eyes: No Vision Changes Ears, Nose, & Throat: No Epistaxis Respiratory: Short Of Breath, No Cough, No Orthopnea, No Stridor Cardiac: No Chest Pain, No Edema, No Palpitations Abdominal/Gastrointestinal: No Abdominal Pain, No Nausea, No Vomiting, No Diarrhea Genitourinary Symptoms: No Dysuria, No Frequency, No Hematuria Musculoskeletal: No Arthralgias, No Back Pain, No Neck Pain Skin: No Cellulitis, No Rash Neurological: Lethargy, No Dizziness, No Focal Weakness Psychological: No Suicidal Ideations Endocrine: No Polyuria, No Polydipsia, No Hair Changes Medications & Allergies Home Medications: Home Medication List Aspirin EC 81 mg [Ecotrin 81 mg] 81 mg PO DAILY 01/17/24 [History Confirmed 01/17/24] Allergies/Adverse Reactions: Allergies Allergy/AdvReac Type Severity Reaction Status Date / Time No Known Drug Allergies Allergy Verified 12/20/21 09:45 - Past Medical History Past Medical History: Yes Comment: stage 4 prostate cancer - Past Surgical History Past Surgical History: No - Social History Smoking Status: Current some day smoker How long have you smoked: years Exposure to second hand smoke: Yes Alcohol: None Drug Use: marijuana - Social Determinants of Health Will the patient participate in the screening: Declined to provide - Physical Exam Vital Signs: Vital Signs - 24 hr Temp Pulse Resp BP BP Pulse Ox 01/17/24 23:00 80 152/112 97 01/17/24 22:34 100 07/21/24 22:30 20 117/70 97 01/17/24 22:00 71 12 125/77 95 01/17/24 21:30 78 30 H 122/81 96 01/17/24 21:00 85 22 125/92 99 01/17/24 20:30 89 24 132/81 97 01/17/24 20:00 74 12 136/82 94 L 01/17/24 19:30 92 H 22 124/78 93 L 01/17/24 19:00 78 34 H 122/75 96 01/17/24 18:20 70 25 H 98 01/17/24 18:10 70 31 H 98 01/17/24 18:00 72 20 97 01/17/24 17:50 67 22 98 01/17/24 17:40 65 21 99 01/17/24 17:33 75 32 H 98 01/17/24 17:00 74 33 H 120/80 100 01/17/24 16:58 100 H 20 100 01/17/24 16:44 74 26 H 129/83 100 01/17/24 16:43 96.8 F 101 H 28 H 129/83 100 General Appearance: no apparent distress Neurologic Exam: alert, oriented x 3 Ears, Nose, Throat Exam: moist mucous membranes Neck Exam: supple Respiratory Exam: No respiratory distress Cardiovascular Exam: regular rate/rhythm Gastrointestinal/Abdomen Exam: soft Extremity Exam: No pedal edema, No swelling Skin Exam: normal color, No rash Results - Labs Lab/Micro Results: Lab Results-Last 24 Hours 01/17/24 01/17/24 01/17/24 Range/Units 16:59 17:23 17:23 WBC 10.5 H (4.23-9.07) x10^3/uL RBC 4.69 (4.63-6.08) x10^6/uL Hgb 15.3 (13.7-17.5) g/dL Hct 43.6 (40.1-51.0) % MCV 93.0 H (79.0-92.2) fL MCH 32.6 H (25.7-32.2) pg MCHC 35.1 (32.3-36.5) g/dL RDW 13.1 (11.6-14.4) % Plt Count 146 L (163-337) x10^3/uL MPV 12.0 (9.4-12.4) fL Gran % 57.5 (34.0-67.9) % Immature Gran % (Auto) 1.3 H (0.001-0.429) % Nucleat RBC Rel Count 0.0 (0.00-0.2) % Eos # (Auto) 0.48 (0.04-0.54) x10^3/uL Immature Gran # (Auto) 0.14 H (0.001-0.031) x10^3u/L Absolute Lymphs (auto) 2.53 (1.32-3.57) x10^3/uL Absolute Monos (auto) 1.25 H (0.30-0.82) x10^3/uL Absolute Nucleated RBC 0.00 (0.00-0.012) x10^3u/L Lymphocytes % 24.1 (21.8-53.1) % Monocytes % 11.9 (5.3-12.2) % Eosinophils % 4.6 (0.8-7.0) % Basophils % 0.6 (0.2-1.2) % Absolute Granulocytes 6.05 H (1.78-5.38) x10^3/uL Basophils # 0.06 (0.01-0.08) x10^3/uL D-Dimer (0.0-0.50) mg/L Puncture Site RIGHT BRACHIAL pCO2 26 L (35-45) mmHg pO2 96 (75-100) mmHg Base Excess -5.8 L (-2.0-2.0) O2 Saturation 96.6 (94-100) g/dF ABG pH 7.42 (7.35-7.45) ABG HCO3 16.9 L* (22-28) ABG O2 Sat (Measured) 99.1 (95-100) % Delon Test NOT APPLICABLE A-a Gradient 71 a/A Ratio 0.57 Hemoglobin 15.2 Carboxyhemoglobin 1.6 (0.0-6.9) % THgb Methemoglobin 0.8 L (1.4-1.5) % Potassium 4.4 4.6 (3.5-5.1) Temperature 37.0 C POC O2 Flow Rate 28 % Sodium 123 L (135-145) mmol/L Chloride 92 L (98-107) mmol/L Carbon Dioxide 23 (22-30) mmol/L Anion Gap 12.5 (5-15) MEQ/L BUN 9 (9-20) mg/dL Creatinine 0.58 L (0.66-1.25) mg/dL Estimated GFR 98.6 ML/MIN Glucose 102 (74-106) mg/dL Lactic Acid 1.1 (0.4-2.0) Calcium 9.4 (8.4-10.2) mg/dL Magnesium 1.8 (1.6-2.3) mg/dL Total Bilirubin 0.90 (0.2-1.3) mg/dL AST 55 (17-59) U/L ALT 33 (0-50) U/L Alkaline Phosphatase 179 H (38-126) U/L Troponin I (0.000-0.033) ng/mL NT-Pro-B Natriuret Pep (<300) pg/mL Serum Total Protein 6.4 (6.3-8.2) g/dL Albumin 3.9 (3.5-5.0) g/dL Influenza Type A Ag (NEGATIVE) Influenza Type B Ag (NEGATIVE) RSV (PCR) (NEGATIVE) SARS-CoV-2 (PCR) (NEGATIVE) 01/17/24 01/17/24 01/17/24 Range/Units 17:23 17:23 17:24 WBC (4.23-9.07) x10^3/uL RBC (4.63-6.08) x10^6/uL Hgb (13.7-17.5) g/dL Hct (40.1-51.0) % MCV (79.0-92.2) fL MCH (25.7-32.2) pg MCHC (32.3-36.5) g/dL RDW (11.6-14.4) % Plt Count (163-337) x10^3/uL MPV (9.4-12.4) fL Gran % (34.0-67.9) % Immature Gran % (Auto) (0.001-0.429) % Nucleat RBC Rel Count (0.00-0.2) % Eos # (Auto) (0.04-0.54) x10^3/uL Immature Gran # (Auto) (0.001-0.031) x10^3u/L Absolute Lymphs (auto) (1.32-3.57) x10^3/uL Absolute Monos (auto) (0.30-0.82) x10^3/uL Absolute Nucleated RBC (0.00-0.012) x10^3u/L Lymphocytes % (21.8-53.1) % Monocytes % (5.3-12.2) % Eosinophils % (0.8-7.0) % Basophils % (0.2-1.2) % Absolute Granulocytes (1.78-5.38) x10^3/uL Basophils # (0.01-0.08) x10^3/uL D-Dimer > 35.20 H* (0.0-0.50) mg/L Puncture Site pCO2 (35-45) mmHg pO2 (75-100) mmHg Base Excess (-2.0-2.0) O2 Saturation (94-100) g/dF ABG pH (7.35-7.45) ABG HCO3 (22-28) ABG O2 Sat (Measured) (95-100) % Delon Test A-a Gradient a/A Ratio Hemoglobin Carboxyhemoglobin (0.0-6.9) % THgb Methemoglobin (1.4-1.5) % Potassium (3.5-5.1) Temperature C POC O2 Flow Rate % Sodium (135-145) mmol/L Chloride (98-107) mmol/L Carbon Dioxide (22-30) mmol/L Anion Gap (5-15) MEQ/L BUN (9-20) mg/dL Creatinine (0.66-1.25) mg/dL Estimated GFR ML/MIN Glucose (74-106) mg/dL Lactic Acid (0.4-2.0) Calcium (8.4-10.2) mg/dL Magnesium (1.6-2.3) mg/dL Total Bilirubin (0.2-1.3) mg/dL AST (17-59) U/L ALT (0-50) U/L Alkaline Phosphatase (38-126) U/L Troponin I 0.084 H* (0.000-0.033) ng/mL NT-Pro-B Natriuret Pep 05063 (<300) pg/mL Serum Total Protein (6.3-8.2) g/dL Albumin (3.5-5.0) g/dL Influenza Type A Ag (NEGATIVE) Influenza Type B Ag (NEGATIVE) RSV (PCR) (NEGATIVE) SARS-CoV-2 (PCR) (NEGATIVE) 01/17/24 01/17/24 Range/Units 17:24 20:58 WBC (4.23-9.07) x10^3/uL RBC (4.63-6.08) x10^6/uL Hgb (13.7-17.5) g/dL Hct (40.1-51.0) % MCV (79.0-92.2) fL MCH (25.7-32.2) pg MCHC (32.3-36.5) g/dL RDW (11.6-14.4) % Plt Count (163-337) x10^3/uL MPV (9.4-12.4) fL Gran % (34.0-67.9) % Immature Gran % (Auto) (0.001-0.429) % Nucleat RBC Rel Count (0.00-0.2) % Eos # (Auto) (0.04-0.54) x10^3/uL Immature Gran # (Auto) (0.001-0.031) x10^3u/L Absolute Lymphs (auto) (1.32-3.57) x10^3/uL Absolute Monos (auto) (0.30-0.82) x10^3/uL Absolute Nucleated RBC (0.00-0.012) x10^3u/L Lymphocytes % (21.8-53.1) % Monocytes % (5.3-12.2) % Eosinophils % (0.8-7.0) % Basophils % (0.2-1.2) % Absolute Granulocytes (1.78-5.38) x10^3/uL Basophils # (0.01-0.08) x10^3/uL D-Dimer (0.0-0.50) mg/L Puncture Site pCO2 (35-45) mmHg pO2 (75-100) mmHg Base Excess (-2.0-2.0) O2 Saturation (94-100) g/dF ABG pH (7.35-7.45) ABG HCO3 (22-28) ABG O2 Sat (Measured) (95-100) % Delon Test A-a Gradient a/A Ratio Hemoglobin Carboxyhemoglobin (0.0-6.9) % THgb Methemoglobin (1.4-1.5) % Potassium (3.5-5.1) Temperature C POC O2 Flow Rate % Sodium (135-145) mmol/L Chloride (98-107) mmol/L Carbon Dioxide (22-30) mmol/L Anion Gap (5-15) MEQ/L BUN (9-20) mg/dL Creatinine (0.66-1.25) mg/dL Estimated GFR ML/MIN Glucose (74-106) mg/dL Lactic Acid (0.4-2.0) Calcium (8.4-10.2) mg/dL Magnesium (1.6-2.3) mg/dL Total Bilirubin (0.2-1.3) mg/dL AST (17-59) U/L ALT (0-50) U/L Alkaline Phosphatase (38-126) U/L Troponin I 0.079 H* (0.000-0.033) ng/mL NT-Pro-B Natriuret Pep (<300) pg/mL Serum Total Protein (6.3-8.2) g/dL Albumin (3.5-5.0) g/dL Influenza Type A Ag NEGATIVE (NEGATIVE) Influenza Type B Ag NEGATIVE (NEGATIVE) RSV (PCR) NEGATIVE (NEGATIVE) SARS-CoV-2 (PCR) NEGATIVE (NEGATIVE) - Radiology Impressions Radiology Exams & Impressions: Radiology Procedures Category Date Time Status CHEST 1 VIEW (PORTABLE) Stat Exams 01/17/24 17:32 Taken CHEST WITH CONTRAST [CT] Stat Exams 01/17/24 19:00 Completed - Other Procedures and Tests Respiratory Therapy 01/17/24 22:59 Oxygen Nasal Cannula 4 lpm Respiratory Therapy Consult ONCE Assessment/Plan (1) Shortness of breath Current Visit: Yes Status: Acute Assessment & Plan: Likely from combination of COPD and CHF with ground glass appearance on CT scan and elevated BNP/pleural effusions 1. Admit to hospital 2. Attempt diuresis 3. Duonebs/steroids 4. Check echo 5. Supplemental O2, wean as tolerated 6. DVT/GI prophylaxis Code(s): R06.02 - SHORTNESS OF BREATH (2) Pleural effusion Current Visit: Yes Status: Acute Assessment & Plan: Likely from CHF Code(s): J90 - PLEURAL EFFUSION, NOT ELSEWHERE CLASSIFIED (3) Troponin level elevated Current Visit: Yes Status: Acute Assessment & Plan: Suspect heart strain from fluid overload 1. Trend troponin 2. Check echo 3. Stress test? Code(s): R79.89 - OTHER SPECIFIED ABNORMAL FINDINGS OF BLOOD CHEMISTRY (4) Hyponatremia Current Visit: Yes Status: Acute Assessment & Plan: Hypervolemic hyponatremia though perhaps some SIADH from lung disease 1. Attempt diuresis 2. Limit free water 3. Check TSH 4. Watch electrolytes closely - no need for hypertonic saline Code(s): E87.1 - HYPO-OSMOLALITY AND HYPONATREMIA Telemedicine Encounter - Telemedicine Encounter Telemedicine Encounter: "The entirety of this encounter was performed via Telemedicine" This visit was performed using real-time audio and video connection between my location and thepatients locationwith the assistance of a surrogateat the patients location. Written or verbal consent was obtained from the patient/guardian to perform this visit [email or web address]. Any patient questions regarding the telemedicine interaction were answered.
[2024-01-17] MEDS ORDERED: TYLENOL 325 MG PO PRN (23:42)
[2024-01-18] MEDS: Lasix 40 MG/4 ML IV SCH ×2 (00:13→08:48)
[2024-01-18] MEDS: DUONEB 0.5-3 MG/3 ml Neb IH SCH (01:40)
[2024-01-18 03:04] LABS: Absolute Neutrophil Ct (ANC) 6.37 x10^3/uL (1.78-5.38); BASOPHIL % 0.2 % (0.2-1.2); Basophil (Absolute #) 0.02 x10^3/uL (0.01-0.08); Eosinophil % 0.1 % (0.8-7.0); Eosinophil (Absolute #) 0.01 x10^3/uL (0.04-0.54); Hematocrit 39.6 % (40.1-51.0); Hemoglobin 13.9 g/dL (13.7-17.5); IMMATURE GRAN # 0.16 x10^3u/L (0.001-0.031); IMMATURE GRAN % 1.8 % (0.001-0.429); Lymphocyte (Absolute #) 2.07 x10^3/uL (1.32-3.57); Lymphocytes % 23.4 % (21.8-53.1); Mean Cell Volume 93.6 fL (79.0-92.2); Mean Corpuscular Hemoglobin 32.9 pg (25.7-32.2); Mean Corpuscular Hgb Concent. 35.1 g/dL (32.3-36.5); Mean Platelet Volume 11.4 fL (9.4-12.4); Monocyte (Absolute #) 0.22 x10^3/uL (0.30-0.82); Monocytes % 2.5 % (5.3-12.2); Platelet Count 126 x10^3/uL (163-337); Red Blood Count 4.23 x10^6/uL (4.63-6.08); Red Cell Distribution Width 13.1 % (11.6-14.4); White Blood Count 8.9 x10^3/uL (4.23-9.07)
[2024-01-18 03:24] LABS: ALBUMIN 3.4 g/dL (3.5-5.0); ANION GAP 12.5 MEQ/L (5-15); BILIRUBIN,TOTAL 0.5 mg/dL (0.2-1.3); Calcium 8.9 mg/dL (8.4-10.2); Creatinine 1 0.51 mg/dL (0.66-1.25); EST GLOMERULAR FILTRATION RATE 102.5 ML/MIN; Potassium 4.9 mmol/L (3.5-5.1); Total Protein 5.8 g/dL (6.3-8.2)
--- NOTE | 2024-01-18 05:50 | PCM.NOTE ---
Date and Time: 01/18/24 0543 Subjective Assessment: Mr. Vincent is an 78 year old male with a PMHX of stage 4 prostate cancer, HTN, and COPD admitted 01/17/24 with CHF/COPD exacerbation after experiencing a month long history of progressive dyspnea. Upon presentation patient was hypoxic with saturations in the mid 80's, placed on 4L with noted improvement. CT chest w/contrast negative for PE - demonstrates Mild cardiomegaly with bilateral pleural effusion, and the possibility of decompensated heart disease need to be considered. Focal area of groundglass haziness with interstitial thickening in right upper lobe along the major fissure in the posterior segment. Possible infectious/inflammatory etiology. Lab findings remarkable initially for mild leukocytosis, hypochloremia, hyponatremia with sodium at 123, and troponins downtrending 0.056<0.079<[place] [address]. 01/18/24: Met with patient bedside. Endorses improvement of dyspnea. No edema noted on exam. Lung sounds with fine crackles to bilateral bases on auscultation. Remains at 4L NC, RA at baseline. Sodium levels have improved some. Echo pending. Plan for continuation of lasix and fluid restriction. Denies fever, cp, abdominal pain, LYN, dizziness, N/V/D. - Review of Systems Constitutional: No Symptoms Eyes: No Symptoms Ears, Nose, & Throat: No Symptoms Respiratory: Short Of Breath Cardiac: No Symptoms Abdominal/Gastrointestinal: No Symptoms Genitourinary Symptoms: No Symptoms Musculoskeletal: No Symptoms Skin: No Symptoms Neurological: No Symptoms Psychological: No Symptoms Endocrine: No Symptoms Hematologic/Lymphatic: No Symptoms Immunological/Allergic: No Symptoms Objective Exam General Appearance: no apparent distress Neurologic Exam: alert, oriented x 3, cooperative Skin Exam: normal color Eye Exam: PERRL Ears, Nose, Throat Exam: normal ENT inspection Neck Exam: normal inspection Respiratory Exam: crackles/rales Cardiovascular Exam: regular rate/rhythm, normal heart sounds Gastrointestinal/Abdomen Exam: soft, normal bowel sounds Extremity Exam: normal inspection Back Exam: normal inspection Male Genitalia Exam: deferred Rectal Exam: deferred Objective Data Vital Signs: Vital Signs - 24 hr Temp Pulse Resp BP BP Pulse Ox 01/18/24 04:00 97.8 F 80 19 123/77 93 L 01/18/24 01:42 64 20 89 L 01/18/24 00:00 97.9 F 76 122/76 100 01/17/24 23:26 100 01/17/24 23:25 97.9 F 76 20 122/76 94 L 01/17/24 23:00 80 152/112 97 01/17/24 22:59 94 L 01/17/24 22:30 20 117/70 97 01/17/24 22:00 71 12 125/77 95 01/17/24 21:30 78 30 H 122/81 96 01/17/24 21:00 85 22 125/92 99 01/17/24 20:30 89 24 132/81 97 01/17/24 20:00 74 12 136/82 94 L 01/17/24 19:30 92 H 22 124/78 93 L 01/17/24 19:00 78 34 H 122/75 96 01/17/24 18:20 70 25 H 98 01/17/24 18:10 70 31 H 98 01/17/24 18:00 72 20 97 01/17/24 17:50 67 22 98 01/17/24 17:40 65 21 99 01/17/24 17:33 75 32 H 98 01/17/24 17:00 74 33 H 120/80 100 01/17/24 16:58 100 H 20 100 01/17/24 16:44 74 26 H 129/83 100 01/17/24 16:43 96.8 F 101 H 28 H 129/83 100 Pain Assessment - Last Documented Pain Intensity 0 Intake and Output: Intake & Output 01/15/24 01/16/24 01/17/24 01/18/24 11:59 11:59 11:59 11:59 Output Total 300 Balance -300 Weight 74.5 kg Lab Results: Lab Results-Last 24 Hours 01/17/24 01/17/24 01/17/24 Range/Units 16:59 17:23 17:23 WBC 10.5 H (4.23-9.07) x10^3/uL RBC 4.69 (4.63-6.08) x10^6/uL Hgb 15.3 (13.7-17.5) g/dL Hct 43.6 (40.1-51.0) % MCV 93.0 H (79.0-92.2) fL MCH 32.6 H (25.7-32.2) pg MCHC 35.1 (32.3-36.5) g/dL RDW 13.1 (11.6-14.4) % Plt Count 146 L (163-337) x10^3/uL MPV 12.0 (9.4-12.4) fL Gran % 57.5 (34.0-67.9) % Immature Gran % (Auto) 1.3 H (0.001-0.429) % Nucleat RBC Rel Count 0.0 (0.00-0.2) % Eos # (Auto) 0.48 (0.04-0.54) x10^3/uL Immature Gran # (Auto) 0.14 H (0.001-0.031) x10^3u/L Absolute Lymphs (auto) 2.53 (1.32-3.57) x10^3/uL Absolute Monos (auto) 1.25 H (0.30-0.82) x10^3/uL Absolute Nucleated RBC 0.00 (0.00-0.012) x10^3u/L Lymphocytes % 24.1 (21.8-53.1) % Monocytes % 11.9 (5.3-12.2) % Eosinophils % 4.6 (0.8-7.0) % Basophils % 0.6 (0.2-1.2) % Absolute Granulocytes 6.05 H (1.78-5.38) x10^3/uL Basophils # 0.06 (0.01-0.08) x10^3/uL D-Dimer (0.0-0.50) mg/L Puncture Site RIGHT BRACHIAL pCO2 26 L (35-45) mmHg pO2 96 (75-100) mmHg Base Excess -5.8 L (-2.0-2.0) O2 Saturation 96.6 (94-100) g/dF ABG pH 7.42 (7.35-7.45) ABG HCO3 16.9 L* (22-28) ABG O2 Sat (Measured) 99.1 (95-100) % Delon Test NOT APPLICABLE A-a Gradient 71 a/A Ratio 0.57 Hemoglobin 15.2 Carboxyhemoglobin 1.6 (0.0-6.9) % THgb Methemoglobin 0.8 L (1.4-1.5) % Potassium 4.4 4.6 (3.5-5.1) Temperature 37.0 C POC O2 Flow Rate 28 % Sodium 123 L (135-145) mmol/L Chloride 92 L (98-107) mmol/L Carbon Dioxide 23 (22-30) mmol/L Anion Gap 12.5 (5-15) MEQ/L BUN 9 (9-20) mg/dL Creatinine 0.58 L (0.66-1.25) mg/dL Estimated GFR 98.6 ML/MIN Glucose 102 (74-106) mg/dL Lactic Acid 1.1 (0.4-2.0) Calcium 9.4 (8.4-10.2) mg/dL Magnesium 1.8 (1.6-2.3) mg/dL Total Bilirubin 0.90 (0.2-1.3) mg/dL AST 55 (17-59) U/L ALT 33 (0-50) U/L Alkaline Phosphatase 179 H (38-126) U/L Troponin I (0.000-0.033) ng/mL NT-Pro-B Natriuret Pep (<300) pg/mL Serum Total Protein 6.4 (6.3-8.2) g/dL Albumin 3.9 (3.5-5.0) g/dL Influenza Type A Ag (NEGATIVE) Influenza Type B Ag (NEGATIVE) RSV (PCR) (NEGATIVE) SARS-CoV-2 (PCR) (NEGATIVE) 01/17/24 01/17/24 01/17/24 Range/Units 17:23 17:23 17:24 WBC (4.23-9.07) x10^3/uL RBC (4.63-6.08) x10^6/uL Hgb (13.7-17.5) g/dL Hct (40.1-51.0) % MCV (79.0-92.2) fL MCH (25.7-32.2) pg MCHC (32.3-36.5) g/dL RDW (11.6-14.4) % Plt Count (163-337) x10^3/uL MPV (9.4-12.4) fL Gran % (34.0-67.9) % Immature Gran % (Auto) (0.001-0.429) % Nucleat RBC Rel Count (0.00-0.2) % Eos # (Auto) (0.04-0.54) x10^3/uL Immature Gran # (Auto) (0.001-0.031) x10^3u/L Absolute Lymphs (auto) (1.32-3.57) x10^3/uL Absolute Monos (auto) (0.30-0.82) x10^3/uL Absolute Nucleated RBC (0.00-0.012) x10^3u/L Lymphocytes % (21.8-53.1) % Monocytes % (5.3-12.2) % Eosinophils % (0.8-7.0) % Basophils % (0.2-1.2) % Absolute Granulocytes (1.78-5.38) x10^3/uL Basophils # (0.01-0.08) x10^3/uL D-Dimer > 35.20 H* (0.0-0.50) mg/L Puncture Site pCO2 (35-45) mmHg pO2 (75-100) mmHg Base Excess (-2.0-2.0) O2 Saturation (94-100) g/dF ABG pH (7.35-7.45) ABG HCO3 (22-28) ABG O2 Sat (Measured) (95-100) % Delon Test A-a Gradient a/A Ratio Hemoglobin Carboxyhemoglobin (0.0-6.9) % THgb Methemoglobin (1.4-1.5) % Potassium (3.5-5.1) Temperature C POC O2 Flow Rate % Sodium (135-145) mmol/L Chloride (98-107) mmol/L Carbon Dioxide (22-30) mmol/L Anion Gap (5-15) MEQ/L BUN (9-20) mg/dL Creatinine (0.66-1.25) mg/dL Estimated GFR ML/MIN Glucose (74-106) mg/dL Lactic Acid (0.4-2.0) Calcium (8.4-10.2) mg/dL Magnesium (1.6-2.3) mg/dL Total Bilirubin (0.2-1.3) mg/dL AST (17-59) U/L ALT (0-50) U/L Alkaline Phosphatase (38-126) U/L Troponin I 0.084 H* (0.000-0.033) ng/mL NT-Pro-B Natriuret Pep 92157 (<300) pg/mL Serum Total Protein (6.3-8.2) g/dL Albumin (3.5-5.0) g/dL Influenza Type A Ag (NEGATIVE) Influenza Type B Ag (NEGATIVE) RSV (PCR) (NEGATIVE) SARS-CoV-2 (PCR) (NEGATIVE) 01/17/24 01/17/24 01/18/24 Range/Units 17:24 20:58 03:00 WBC (4.23-9.07) x10^3/uL RBC (4.63-6.08) x10^6/uL Hgb (13.7-17.5) g/dL Hct (40.1-51.0) % MCV (79.0-92.2) fL MCH (25.7-32.2) pg MCHC (32.3-36.5) g/dL RDW (11.6-14.4) % Plt Count (163-337) x10^3/uL MPV (9.4-12.4) fL Gran % (34.0-67.9) % Immature Gran % (Auto) (0.001-0.429) % Nucleat RBC Rel Count (0.00-0.2) % Eos # (Auto) (0.04-0.54) x10^3/uL Immature Gran # (Auto) (0.001-0.031) x10^3u/L Absolute Lymphs (auto) (1.32-3.57) x10^3/uL Absolute Monos (auto) (0.30-0.82) x10^3/uL Absolute Nucleated RBC (0.00-0.012) x10^3u/L Lymphocytes % (21.8-53.1) % Monocytes % (5.3-12.2) % Eosinophils % (0.8-7.0) % Basophils % (0.2-1.2) % Absolute Granulocytes (1.78-5.38) x10^3/uL Basophils # (0.01-0.08) x10^3/uL D-Dimer (0.0-0.50) mg/L Puncture Site pCO2 (35-45) mmHg pO2 (75-100) mmHg Base Excess (-2.0-2.0) O2 Saturation (94-100) g/dF ABG pH (7.35-7.45) ABG HCO3 (22-28) ABG O2 Sat (Measured) (95-100) % Delon Test A-a Gradient a/A Ratio Hemoglobin Carboxyhemoglobin (0.0-6.9) % THgb Methemoglobin (1.4-1.5) % Potassium (3.5-5.1) Temperature C POC O2 Flow Rate % Sodium (135-145) mmol/L Chloride (98-107) mmol/L Carbon Dioxide (22-30) mmol/L Anion Gap (5-15) MEQ/L BUN (9-20) mg/dL Creatinine (0.66-1.25) mg/dL Estimated GFR ML/MIN Glucose (74-106) mg/dL Lactic Acid (0.4-2.0) Calcium (8.4-10.2) mg/dL Magnesium (1.6-2.3) mg/dL Total Bilirubin (0.2-1.3) mg/dL AST (17-59) U/L ALT (0-50) U/L Alkaline Phosphatase (38-126) U/L Troponin I 0.079 H* 0.056 H* (0.000-0.033) ng/mL NT-Pro-B Natriuret Pep (<300) pg/mL Serum Total Protein (6.3-8.2) g/dL Albumin (3.5-5.0) g/dL Influenza Type A Ag NEGATIVE (NEGATIVE) Influenza Type B Ag NEGATIVE (NEGATIVE) RSV (PCR) NEGATIVE (NEGATIVE) SARS-CoV-2 (PCR) NEGATIVE (NEGATIVE) 01/18/24 01/18/24 Range/Units 03:00 03:00 WBC 8.9 (4.23-9.07) x10^3/uL RBC 4.23 L (4.63-6.08) x10^6/uL Hgb 13.9 (13.7-17.5) g/dL Hct 39.6 L (40.1-51.0) % MCV 93.6 H (79.0-92.2) fL MCH 32.9 H (25.7-32.2) pg MCHC 35.1 (32.3-36.5) g/dL RDW 13.1 (11.6-14.4) % Plt Count 126 L (163-337) x10^3/uL MPV 11.4 (9.4-12.4) fL Gran % 72.0 H (34.0-67.9) % Immature Gran % (Auto) 1.8 H (0.001-0.429) % Nucleat RBC Rel Count 0.0 (0.00-0.2) % Eos # (Auto) 0.01 L (0.04-0.54) x10^3/uL Immature Gran # (Auto) 0.16 H (0.001-0.031) x10^3u/L Absolute Lymphs (auto) 2.07 (1.32-3.57) x10^3/uL Absolute Monos (auto) 0.22 L (0.30-0.82) x10^3/uL Absolute Nucleated RBC 0.00 (0.00-0.012) x10^3u/L Lymphocytes % 23.4 (21.8-53.1) % Monocytes % 2.5 L (5.3-12.2) % Eosinophils % 0.1 L (0.8-7.0) % Basophils % 0.2 (0.2-1.2) % Absolute Granulocytes 6.37 H (1.78-5.38) x10^3/uL Basophils # 0.02 (0.01-0.08) x10^3/uL D-Dimer (0.0-0.50) mg/L Puncture Site pCO2 (35-45) mmHg pO2 (75-100) mmHg Base Excess (-2.0-2.0) O2 Saturation (94-100) g/dF ABG pH (7.35-7.45) ABG HCO3 (22-28) ABG O2 Sat (Measured) (95-100) % Delon Test A-a Gradient a/A Ratio Hemoglobin Carboxyhemoglobin (0.0-6.9) % THgb Methemoglobin (1.4-1.5) % Potassium 4.9 (3.5-5.1) Temperature C POC O2 Flow Rate % Sodium 125 L (135-145) mmol/L Chloride 96 L (98-107) mmol/L Carbon Dioxide 22 (22-30) mmol/L Anion Gap 12.5 (5-15) MEQ/L BUN 9 (9-20) mg/dL Creatinine 0.51 L (0.66-1.25) mg/dL Estimated GFR 102.5 ML/MIN Glucose 157 H (74-106) mg/dL Lactic Acid (0.4-2.0) Calcium 8.9 (8.4-10.2) mg/dL Magnesium (1.6-2.3) mg/dL Total Bilirubin 0.50 (0.2-1.3) mg/dL AST 48 (17-59) U/L ALT 32 (0-50) U/L Alkaline Phosphatase 146 H (38-126) U/L Troponin I (0.000-0.033) ng/mL NT-Pro-B Natriuret Pep 29010 (<300) pg/mL Serum Total Protein 5.8 L (6.3-8.2) g/dL Albumin 3.4 L (3.5-5.0) g/dL Influenza Type A Ag (NEGATIVE) Influenza Type B Ag (NEGATIVE) RSV (PCR) (NEGATIVE) SARS-CoV-2 (PCR) (NEGATIVE) Radiology Exams: Radiology Procedures Category Date Time Status CHEST 1 VIEW (PORTABLE) Stat Exams 01/17/24 17:32 Taken CHEST WITH CONTRAST [CT] Stat Exams 01/17/24 19:00 Completed ECHO W/2D AND DOPPLER [US] Routine Exams 01/17/24 23:46 Ordered Assessment/Plan (1) Acute respiratory failure with hypoxia Current Visit: Yes Status: Acute Assessment & Plan: -Most likely secondary to CHF/COPD exacerbation -CT negative for PE - demonstrates Mild cardiomegaly with bilateral pleural effusion, and the possibility of decompensated heart disease need to be considered. Focal area of groundglass haziness with interstitial thickening in right upper lobe along the major fissure in the posterior segment. Possible infectious/inflammatory etiology -Supplemental oxygen with goal spo2 > 88-92% - 4L, baseline -RT eval -Nebs/bronchodilators -Ceftriaxone Code(s): J96.01 - ACUTE RESPIRATORY FAILURE WITH HYPOXIA (2) CHF exacerbation Current Visit: Yes Status: Acute Assessment & Plan: -BNP 57725 -echo ordered and pending -Lasix 40mg BID -elevated HOB, Daily weights, continuous tele -optimize electrolytes with goal K>4, MG>2 -consider cards consult Code(s): I50.9 - HEART FAILURE, UNSPECIFIED (3) COPD exacerbation Current Visit: Yes Status: Acute Assessment & Plan: -may be secondary to infectious cause/CHF exacerbation -RT following -NEBS/bronchodilators -Ceftriaxtone -solu-medrol -supplemental oxygen with goal spo2 88-9% - titrate -PPI Code(s): J44.1 - CHRONIC OBSTRUCTIVE PULMONARY DISEASE W (ACUTE) EXACERBATION (4) Hyponatremia Current Visit: Yes Status: Acute Assessment & Plan: -Continue Lasix -1.5L fluid restriction -monitor renal lytes -check TSH, lipid, BMP q4H -urine sodium/osmo -serum osmo Code(s): E87.1 - HYPO-OSMOLALITY AND HYPONATREMIA (5) Pleural effusion Current Visit: Yes Status: Acute Assessment & Plan: -see plan for CHF Code(s): J90 - PLEURAL EFFUSION, NOT ELSEWHERE CLASSIFIED (6) Troponin level elevated Current Visit: Yes Status: Acute Assessment & Plan: -trops downtrending -repeat EKG -Echo -consider cards consult -Most likely respiratory vs cardiac cause Code(s): R79.89 - OTHER SPECIFIED ABNORMAL FINDINGS OF BLOOD CHEMISTRY
--- NOTE | 2024-01-18 08:44 | XRAY ---
Indication: Short of breath. Comparison: January 05, 2024 Portable chest demonstrates borderline cardiomegaly with new small bibasilar effusions/atelectasis concerning for cardiac decompensation/CHF versus fluid overload. Superimposed pneumonia not completely excluded. Bony thorax intact again with osteopenia and degenerative changes.
[2024-01-18] MEDS: ECOTRIN 81 MG PO SCH (11:38)
[2024-01-18] MEDS: ENOXAPARIN SODIUM SQ SCH (11:38)
[2024-01-18] MEDS: Protonix 40MG Tablet PO SCH (11:38)
[2024-01-18] MEDS: solu-MEDROL 20 MG, Sterile H2O 10 ml 1 ML IV SCH (11:38)
[2024-01-18 17:43] LABS: ALBUMIN 3.6 g/dL (3.5-5.0); BILIRUBIN,TOTAL 0.5 mg/dL (0.2-1.3); Creatinine 1 0.62 mg/dL (0.66-1.25); EST GLOMERULAR FILTRATION RATE 96.6 ML/MIN; Total Protein 6.1 g/dL (6.3-8.2)
[2024-01-18 17:46] LABS: Potassium 4.9 mmol/L (3.5-5.1)
[2024-01-18 17:48] LABS: ANION GAP 13.9 MEQ/L (5-15)
[2024-01-18] MEDS: ROCEPHIN 1 GM / 100 ML NaCl 1 GM/100 ML IVPB IV SCH (21:31)
[2024-01-19 05:00] LABS: Absolute Neutrophil Ct (ANC) 9.58 x10^3/uL (1.78-5.38); BASOPHIL % 0.2 % (0.2-1.2); Basophil (Absolute #) 0.03 x10^3/uL (0.01-0.08); Eosinophil % 0.2 % (0.8-7.0); Eosinophil (Absolute #) 0.02 x10^3/uL (0.04-0.54); Hemoglobin 13.2 g/dL (13.7-17.5); IMMATURE GRAN # 0.22 x10^3u/L (0.001-0.031); IMMATURE GRAN % 1.7 % (0.001-0.429); Lymphocyte (Absolute #) 2.08 x10^3/uL (1.32-3.57); Lymphocytes % 16.1 % (21.8-53.1); Mean Cell Volume 93.4 fL (79.0-92.2); Mean Corpuscular Hemoglobin 32.4 pg (25.7-32.2); Mean Corpuscular Hgb Concent. 34.7 g/dL (32.3-36.5); Mean Platelet Volume 11.3 fL (9.4-12.4); Monocyte (Absolute #) 0.99 x10^3/uL (0.30-0.82); Monocytes % 7.7 % (5.3-12.2); Neutrophil % 74.1 % (34.0-67.9); Platelet Count 140 x10^3/uL (163-337); Red Blood Count 4.07 x10^6/uL (4.63-6.08); Red Cell Distribution Width 13.5 % (11.6-14.4); White Blood Count 12.9 x10^3/uL (4.23-9.07)
--- NOTE | 2024-01-19 05:23 | PCM.NOTE ---
Date and Time: 01/19/24 0522 Subjective Assessment: Mr. Vincent is an 78 year old male with a PMHX of stage 4 prostate cancer, HTN, and COPD admitted 01/17/24 with CHF/COPD exacerbation after experiencing a month long history of progressive dyspnea. Upon presentation patient was hypoxic with saturations in the mid 80's, placed on 4L with noted improvement. CT chest w/contrast negative for PE - demonstrates Mild cardiomegaly with bilateral pleural effusion, and the possibility of decompensated heart disease need to be considered. Focal area of groundglass haziness with interstitial thickening in right upper lobe along the major fissure in the posterior segment. Possible infectious/inflammatory etiology. Lab findings remarkable initially for mild leukocytosis, hypochloremia, hyponatremia with sodium at 123, and troponins downtrending 0.056<0.079<[place] [address]. Family interested in palliative care- working on this. 01/18/24: Met with patient bedside. Endorses improvement of dyspnea. No edema noted on exam. Lung sounds with fine crackles to bilateral bases on auscultation. Remains at 4L NC, RA at baseline. Sodium levels have improved some. Echo pending. Plan for continuation of lasix and fluid restriction. Denies fever, cp, abdominal pain, LYN, dizziness, N/V/D. 01/19/24 No overnight events noted. Patient endorses continued improvement of dyspnea and cough. Oxygen requirements decreased to 2L-continue to wean. Sodium levels improving. Will continue Lasix/fluid restriction. Plan for discharge tomorrow if labs continue to improve. - Review of Systems Constitutional: No Symptoms Eyes: No Symptoms Ears, Nose, & Throat: No Symptoms Respiratory: Cough, Short Of Breath Cardiac: No Symptoms Abdominal/Gastrointestinal: No Symptoms Genitourinary Symptoms: No Symptoms Musculoskeletal: No Symptoms Skin: No Symptoms Neurological: No Symptoms Psychological: No Symptoms Endocrine: No Symptoms Hematologic/Lymphatic: No Symptoms Immunological/Allergic: No Symptoms Objective Exam General Appearance: no apparent distress Neurologic Exam: alert, oriented x 3, cooperative Skin Exam: normal color Eye Exam: PERRL Ears, Nose, Throat Exam: normal ENT inspection Neck Exam: normal inspection Respiratory Exam: diminished breath sounds Cardiovascular Exam: regular rate/rhythm, normal heart sounds Gastrointestinal/Abdomen Exam: soft, normal bowel sounds Extremity Exam: normal inspection Back Exam: normal inspection Male Genitalia Exam: deferred Rectal Exam: deferred Objective Data Vital Signs: Vital Signs - 24 hr Temp Pulse Resp BP Pulse Ox 01/19/24 04:00 97.2 F 78 18 111/57 92 L 01/19/24 01:32 82 16 92 L 01/18/24 23:49 97.7 F 78 18 112/58 91 L 01/18/24 19:54 97.7 F 77 18 108/62 90 L 01/18/24 19:21 74 14 95 01/18/24 16:00 98.2 F 81 20 122/61 94 L 01/18/24 13:11 76 18 91 L 01/18/24 12:00 97.7 F 71 16 111/59 91 L 01/18/24 07:06 97.7 F 74 16 113/68 93 L 01/18/24 06:54 78 18 93 L Pain Assessment - Last Documented Pain Intensity 0 Intake and Output: Intake & Output 01/16/24 01/17/24 01/18/24 01/19/24 11:59 11:59 11:59 11:59 Intake Total 120 180 Output Total 800 1600 Balance -680 -1420 Weight 74.5 kg Lab Results: Lab Results-Last 24 Hours 01/18/24 01/19/24 Range/Units 17:16 04:28 WBC 12.9 H (4.23-9.07) x10^3/uL RBC 4.07 L (4.63-6.08) x10^6/uL Hgb 13.2 L (13.7-17.5) g/dL Hct 38.0 L (40.1-51.0) % MCV 93.4 H (79.0-92.2) fL MCH 32.4 H (25.7-32.2) pg MCHC 34.7 (32.3-36.5) g/dL RDW 13.5 (11.6-14.4) % Plt Count 140 L (163-337) x10^3/uL MPV 11.3 (9.4-12.4) fL Gran % 74.1 H (34.0-67.9) % Immature Gran % (Auto) 1.7 H (0.001-0.429) % Nucleat RBC Rel Count 0.0 (0.00-0.2) % Eos # (Auto) 0.02 L (0.04-0.54) x10^3/uL Immature Gran # (Auto) 0.22 H (0.001-0.031) x10^3u/L Absolute Lymphs (auto) 2.08 (1.32-3.57) x10^3/uL Absolute Monos (auto) 0.99 H (0.30-0.82) x10^3/uL Absolute Nucleated RBC 0.00 (0.00-0.012) x10^3u/L Lymphocytes % 16.1 L (21.8-53.1) % Monocytes % 7.7 (5.3-12.2) % Eosinophils % 0.2 L (0.8-7.0) % Basophils % 0.2 (0.2-1.2) % Absolute Granulocytes 9.58 H (1.78-5.38) x10^3/uL Basophils # 0.03 (0.01-0.08) x10^3/uL Sodium 127 L (135-145) mmol/L Potassium 4.9 (3.5-5.1) mmol/L Chloride 96 L (98-107) mmol/L Carbon Dioxide 22 (22-30) mmol/L Anion Gap 13.9 (5-15) MEQ/L BUN 15 (9-20) mg/dL Creatinine 0.62 L (0.66-1.25) mg/dL Estimated GFR 96.6 ML/MIN Glucose 129 H (74-106) mg/dL Calcium 9.0 (8.4-10.2) mg/dL Total Bilirubin 0.50 (0.2-1.3) mg/dL AST 52 (17-59) U/L ALT 38 (0-50) U/L Alkaline Phosphatase 145 H (38-126) U/L Serum Total Protein 6.1 L (6.3-8.2) g/dL Albumin 3.6 (3.5-5.0) g/dL Radiology Exams: Radiology Procedures Category Date Time Status CHEST 1 VIEW (PORTABLE) Stat Exams 01/17/24 17:32 Completed CHEST WITH CONTRAST [CT] Stat Exams 01/17/24 19:00 Completed ECHO W/2D AND DOPPLER [US] Routine Exams 01/18/24 08:00 Taken Multi-Disciplinary Progress Notes: Multi-Disciplinary Progress Notes 01/18/24 12:58 Case Management Note by Cielo Murphy CALLED DAUGHTER TO DISCUSS DC NEEDS- NO ANSWER, UNABLE TO LEAVE VOICEMAIL Initialized on 01/18/24 12:58 - END OF NOTE Assessment/Plan (1) Acute respiratory failure with hypoxia Current Visit: Yes Status: Acute Assessment & Plan: -Most likely secondary to CHF/COPD exacerbation -CT negative for PE - demonstrates Mild cardiomegaly with bilateral pleural effusion, and the possibility of decompensated heart disease need to be considered. Focal area of groundglass haziness with interstitial thickening in right upper lobe along the major fissure in the posterior segment. Possible infectious/inflammatory etiology -Supplemental oxygen with goal spo2 > 88-92% - 4L, baseline -RT eval -Nebs/bronchodilators -Ceftriaxone 01/19/24: -Continue ceftriaxone -Wean oxygen if able- qualify for home use if needed Code(s): J96.01 - ACUTE RESPIRATORY FAILURE WITH HYPOXIA (2) CHF exacerbation Current Visit: Yes Status: Acute Assessment & Plan: -BNP 93561 -echo ordered and pending -Lasix 40mg BID -elevated HOB, Daily weights, continuous tele -optimize electrolytes with goal K>4, MG>2 -consider cards consult 01/18: -Cardiology consult -echo read- low EF at 23% Code(s): I50.9 - HEART FAILURE, UNSPECIFIED (3) COPD exacerbation Current Visit: Yes Status: Acute Assessment & Plan: -may be secondary to infectious cause/CHF exacerbation -RT following -NEBS/bronchodilators -Ceftriaxtone -solu-medrol -supplemental oxygen with goal spo2 88-9% - titrate -PPI Code(s): J44.1 - CHRONIC OBSTRUCTIVE PULMONARY DISEASE W (ACUTE) EXACERBATION (4) Hyponatremia Current Visit: Yes Status: Acute Assessment & Plan: -Continue Lasix -1.5L fluid restriction -monitor renal lytes -check TSH, lipid, BMP q4H -urine sodium/osmo -serum osmo 01/18: -Improving now at 130, will continue to monitor Code(s): E87.1 - HYPO-OSMOLALITY AND HYPONATREMIA (5) Pleural effusion Current Visit: Yes Status: Acute Assessment & Plan: -see plan for CHF Code(s): J90 - PLEURAL EFFUSION, NOT ELSEWHERE CLASSIFIED (6) Troponin level elevated Current Visit: Yes Status: Acute Assessment & Plan: -trops downtrending -repeat EKG -Echo -consider cards consult -Most likely respiratory vs cardiac cause 01/18: -Cardiology consulted appreciate recs Code(s): R79.89 - OTHER SPECIFIED ABNORMAL FINDINGS OF BLOOD CHEMISTRY Additional CC's: Dr. VIDHYA PACHECO Code(s): J96.01 - ACUTE RESPIRATORY FAILURE WITH HYPOXIA (2) CHF exacerbation Current Visit: Yes Status: Acute Code(s): I50.9 - HEART FAILURE, UNSPECIFIED (3) COPD exacerbation Current Visit: Yes Status: Acute Code(s): J44.1 - CHRONIC OBSTRUCTIVE PULMONARY DISEASE W (ACUTE) EXACERBATION (4) Hyponatremia Current Visit: Yes Status: Acute Code(s): E87.1 - HYPO-OSMOLALITY AND HYPONATREMIA (5) Pleural effusion Current Visit: Yes Status: Acute Code(s): J90 - PLEURAL EFFUSION, NOT ELSEWHERE CLASSIFIED (6) Troponin level elevated Current Visit: Yes Status: Acute Code(s): R79.89 - OTHER SPECIFIED ABNORMAL FINDINGS OF BLOOD CHEMISTRY
[2024-01-19 05:27] LABS: ALBUMIN 3.6 g/dL (3.5-5.0); ANION GAP 11.8 MEQ/L (5-15); BILIRUBIN,TOTAL 0.4 mg/dL (0.2-1.3); Creatinine 1 0.61 mg/dL (0.66-1.25); EST GLOMERULAR FILTRATION RATE 97.1 ML/MIN; Potassium 4.2 mmol/L (3.5-5.1)
[2024-01-19] MEDS: Docusate Sodium 100 MG PO SCH (22:18)
[2024-01-20 04:55] LABS: Absolute Neutrophil Ct (ANC) 9.53 x10^3/uL (1.78-5.38); BASOPHIL % 0.2 % (0.2-1.2); Basophil (Absolute #) 0.03 x10^3/uL (0.01-0.08); Eosinophil (Absolute #) 0 x10^3/uL (0.04-0.54); Hematocrit 42.3 % (40.1-51.0); Hemoglobin 14.4 g/dL (13.7-17.5); IMMATURE GRAN # 0.28 x10^3u/L (0.001-0.031); IMMATURE GRAN % 2.1 % (0.001-0.429); Lymphocyte (Absolute #) 2.69 x10^3/uL (1.32-3.57); Lymphocytes % 19.9 % (21.8-53.1); Mean Cell Volume 95.7 fL (79.0-92.2); Mean Corpuscular Hemoglobin 32.6 pg (25.7-32.2); Mean Platelet Volume 11.5 fL (9.4-12.4); Monocyte (Absolute #) 0.97 x10^3/uL (0.30-0.82); Monocytes % 7.2 % (5.3-12.2); Neutrophil % 70.6 % (34.0-67.9); Platelet Count 143 x10^3/uL (163-337); Red Blood Count 4.42 x10^6/uL (4.63-6.08); Red Cell Distribution Width 13.5 % (11.6-14.4); White Blood Count 13.5 x10^3/uL (4.23-9.07)
[2024-01-20 05:07] LABS: ANION GAP 13.7 MEQ/L (5-15); BILIRUBIN,TOTAL 0.4 mg/dL (0.2-1.3); Calcium 9.4 mg/dL (8.4-10.2); Creatinine 1 0.56 mg/dL (0.66-1.25); EST GLOMERULAR FILTRATION RATE 99.6 ML/MIN; Potassium 4.3 mmol/L (3.5-5.1); Total Protein 6.5 g/dL (6.3-8.2)
--- NOTE | 2024-01-20 05:27 | PCM.NOTE ---
Date and Time: 01/20/24 0527 Subjective Assessment: Mr. Vincent is an 78 year old male with a PMHX of stage 4 prostate cancer, HTN, and COPD admitted 01/17/24 with CHF/COPD exacerbation after experiencing a month long history of progressive dyspnea. Upon presentation patient was hypoxic with saturations in the mid 80's, placed on 4L with noted improvement. CT chest w/contrast negative for PE - demonstrates Mild cardiomegaly with bilateral pleural effusion, and the possibility of decompensated heart disease need to be considered. Focal area of groundglass haziness with interstitial thickening in right upper lobe along the major fissure in the posterior segment. Possible infectious/inflammatory etiology. Lab findings remarkable initially for mild leukocytosis, hypochloremia, hyponatremia with sodium at 123, and troponins downtrending 0.056<0.079<[place] [address]. Family interested in palliative care- CM working on this. 01/18/24: Met with patient bedside. Endorses improvement of dyspnea. No edema noted on exam. Lung sounds with fine crackles to bilateral bases on auscultation. Remains at 4L NC, RA at baseline. Sodium levels have improved some. Echo pending. Plan for continuation of lasix and fluid restriction. Denies fever, cp, abdominal pain, LYN, dizziness, N/V/D. 01/19/24 No overnight events noted. Patient endorses continued improvement of dyspnea and cough. Oxygen requirements decreased to 2L-continue to wean. Sodium levels improving. Will continue Lasix/fluid restriction. Plan for discharge tomorrow if labs continue to improve. 01/20/24: Met and examined patient. Dyspnea has improved. He has qualified for home oxygen. Echo with 23% EF, cardiology consulted and pending. Sodium levels continue to improve. Will continue Lasix and fluid restriction. Discharge pending cards eval. Denies fever, cp, abdominal pain, LYN, dizziness, N/V/D. - Review of Systems Constitutional: No Symptoms Eyes: No Symptoms Ears, Nose, & Throat: No Symptoms Respiratory: Cough, Short Of Breath Cardiac: No Symptoms Abdominal/Gastrointestinal: No Symptoms Genitourinary Symptoms: No Symptoms Musculoskeletal: No Symptoms Skin: No Symptoms Neurological: No Symptoms Psychological: No Symptoms Endocrine: No Symptoms Hematologic/Lymphatic: No Symptoms Immunological/Allergic: No Symptoms Objective Exam General Appearance: no apparent distress Neurologic Exam: alert, oriented x 3, cooperative Skin Exam: normal color Eye Exam: PERRL Ears, Nose, Throat Exam: moist mucous membranes Neck Exam: normal inspection Respiratory Exam: diminished breath sounds Cardiovascular Exam: regular rate/rhythm, normal heart sounds Gastrointestinal/Abdomen Exam: soft, normal bowel sounds Extremity Exam: normal inspection Back Exam: normal inspection Male Genitalia Exam: deferred Rectal Exam: deferred Objective Data Vital Signs: Vital Signs - 24 hr Temp Pulse Resp BP Pulse Ox 01/20/24 04:00 97.9 F 75 17 117/68 94 L 01/19/24 23:55 98.5 F 77 18 121/68 94 L 01/19/24 20:00 97.5 F 80 20 117/62 90 L 01/19/24 19:15 78 18 90 L 01/19/24 16:00 97.7 F 80 16 111/65 93 L 01/19/24 13:15 72 20 95 01/19/24 11:37 98.0 F 75 16 101/55 95 01/19/24 07:32 95 01/19/24 07:11 69 22 97 01/19/24 07:09 97.8 F 78 21 116/66 96 Pain Assessment - Last Documented Pain Intensity 0 Intake and Output: Intake & Output 01/17/24 01/18/24 01/19/24 01/20/24 11:59 11:59 11:59 11:59 Intake Total 120 760 760 Output Total 800 6446 2589 Balance -680 -4317 -5100 Weight 74.5 kg 74.3 kg Lab Results: Lab Results-Last 24 Hours 01/19/24 01/19/24 01/20/24 Range/Units 04:28 04:28 04:30 WBC 13.5 H (4.23-9.07) x10^3/uL RBC 4.42 L (4.63-6.08) x10^6/uL Hgb 14.4 (13.7-17.5) g/dL Hct 42.3 (40.1-51.0) % MCV 95.7 H (79.0-92.2) fL MCH 32.6 H (25.7-32.2) pg MCHC 34.0 (32.3-36.5) g/dL RDW 13.5 (11.6-14.4) % Plt Count 143 L (163-337) x10^3/uL MPV 11.5 (9.4-12.4) fL Gran % 70.6 H (34.0-67.9) % Immature Gran % (Auto) 2.1 H (0.001-0.429) % Nucleat RBC Rel Count 0.0 (0.00-0.2) % Eos # (Auto) 0 L (0.04-0.54) x10^3/uL Immature Gran # (Auto) 0.28 H (0.001-0.031) x10^3u/L Absolute Lymphs (auto) 2.69 (1.32-3.57) x10^3/uL Absolute Monos (auto) 0.97 H (0.30-0.82) x10^3/uL Absolute Nucleated RBC 0.00 (0.00-0.012) x10^3u/L Lymphocytes % 19.9 L (21.8-53.1) % Monocytes % 7.2 (5.3-12.2) % Eosinophils % 0.0 L (0.8-7.0) % Basophils % 0.2 (0.2-1.2) % Absolute Granulocytes 9.53 H (1.78-5.38) x10^3/uL Basophils # 0.03 (0.01-0.08) x10^3/uL Sodium 130 L (135-145) mmol/L Potassium 4.2 (3.5-5.1) mmol/L Chloride 97 L (98-107) mmol/L Carbon Dioxide 26 (22-30) mmol/L Anion Gap 11.8 (5-15) MEQ/L BUN 16 (9-20) mg/dL Creatinine 0.61 L (0.66-1.25) mg/dL Estimated GFR 97.1 ML/MIN Glucose 126 H (74-106) mg/dL Calcium 9.0 (8.4-10.2) mg/dL Total Bilirubin 0.40 (0.2-1.3) mg/dL AST 48 (17-59) U/L ALT 33 (0-50) U/L Alkaline Phosphatase 139 H (38-126) U/L Serum Total Protein 6.0 L (6.3-8.2) g/dL Albumin 3.6 (3.5-5.0) g/dL TSH 3rd Generation 0.231 L (0.470-4.680) mIU/L Radiology Exams: Radiology Procedures Category Date Time Status ECHO W/2D AND DOPPLER [US] Routine Exams 01/18/24 08:00 Taken Multi-Disciplinary Progress Notes: Multi-Disciplinary Progress Notes 01/19/24 14:42 Case Management Note by Cielo Murphy S/W PATIENT AND DAUGHTER ABOUT NEEDS AT DC- THE DAUGHTER MATILDA IS AN ED PHYSCIAN AND REPORTS SHE IS GOING TO BE STAYING WITH PATIENT FOR AWHILE AFTER DISCHARGE. SHE MENTIONED THAT THEY WERE NOT SEEKING ANY TREATMENT REGARDING HIS PROSTATE CA. I ASKED IF THEY WERE INTERSTED IN HOSPICE CARE- SHE STATED NO BUT THAT THEY WOULD BE INTERESTED IN PALLIATIVE CARE. SHE WAS NOTIFIED PROVIDERS IN THIS AREA ARE LIMITED. WILL SEND REFERRAL TO [facility] Initialized on 01/19/24 14:42 - END OF NOTE Assessment/Plan (1) Acute respiratory failure with hypoxia Current Visit: Yes Status: Acute Assessment & Plan: -Most likely secondary to CHF/COPD exacerbation -CT negative for PE - demonstrates Mild cardiomegaly with bilateral pleural effusion, and the possibility of decompensated heart disease need to be considered. Focal area of groundglass haziness with interstitial thickening in right upper lobe along the major fissure in the posterior segment. Possible infectious/inflammatory etiology -Supplemental oxygen with goal spo2 > 88-92% - 4L, baseline -RT eval -Nebs/bronchodilators -Ceftriaxone 01/19/24: -Continue ceftriaxone -Wean oxygen if able- qualify for home use if needed 01/19: -Qualifies for home oxygen - will arrange Code(s): J96.01 - ACUTE RESPIRATORY FAILURE WITH HYPOXIA (2) CHF exacerbation Current Visit: Yes Status: Acute Assessment & Plan: -BNP 64688 -echo ordered and pending -Lasix 40mg BID -elevated HOB, Daily weights, continuous tele -optimize electrolytes with goal K>4, MG>2 -consider cards consult 01/18: -Cardiology consult -echo read- low EF at 23% 01/19: -Cards consult pending- appreciate recs -continue lasix/fluid restriction Code(s): I50.9 - HEART FAILURE, UNSPECIFIED (3) COPD exacerbation Current Visit: Yes Status: Acute Assessment & Plan: -may be secondary to infectious cause/CHF exacerbation -RT following -NEBS/bronchodilators -Ceftriaxtone -solu-medrol -supplemental oxygen with goal spo2 88-9% - titrate -PPI Code(s): J44.1 - CHRONIC OBSTRUCTIVE PULMONARY DISEASE W (ACUTE) EXACERBATION (4) Hyponatremia Current Visit: Yes Status: Acute Assessment & Plan: -Continue Lasix -1.5L fluid restriction -monitor renal lytes -check TSH, lipid, BMP q4H -urine sodium/osmo -serum osmo 01/18: -Improving now at 130, will continue to monitor 01/19: -Na level at 134 - continue lasix/fluid restriction Code(s): E87.1 - HYPO-OSMOLALITY AND HYPONATREMIA (5) Pleural effusion Current Visit: Yes Status: Acute Assessment & Plan: -see plan for CHF Code(s): J90 - PLEURAL EFFUSION, NOT ELSEWHERE CLASSIFIED (6) Troponin level elevated Current Visit: Yes Status: Acute Assessment & Plan: -trops downtrending -repeat EKG -Echo -consider cards consult -Most likely respiratory vs cardiac cause 01/18: -Cardiology consulted appreciate recs Code(s): R79.89 - OTHER SPECIFIED ABNORMAL FINDINGS OF BLOOD CHEMISTRY Additional CC's: Dr. VIDHYA PACHECO Code(s): J96.01 - ACUTE RESPIRATORY FAILURE WITH HYPOXIA Code(s): J96.01 - ACUTE RESPIRATORY FAILURE WITH HYPOXIA (2) CHF exacerbation Current Visit: Yes Status: Acute Code(s): I50.9 - HEART FAILURE, UNSPECIFIED (3) COPD exacerbation Current Visit: Yes Status: Acute Code(s): J44.1 - CHRONIC OBSTRUCTIVE PULMONARY DISEASE W (ACUTE) EXACERBATION (4) Hyponatremia Current Visit: Yes Status: Acute Code(s): E87.1 - HYPO-OSMOLALITY AND HYPONATREMIA (5) Pleural effusion Current Visit: Yes Status: Acute Code(s): J90 - PLEURAL EFFUSION, NOT ELSEWHERE CLASSIFIED (6) Troponin level elevated Current Visit: Yes Status: Acute Code(s): R79.89 - OTHER SPECIFIED ABNORMAL FINDINGS OF BLOOD CHEMISTRY
[2024-01-20] MEDS: Miralax Powder 17GM PACKET PO PRN (09:50)
[2024-01-20] MEDS: DELTASONE 20 MG PO SCH (09:51)
--- NOTE | 2024-01-20 17:05 | PCM.CONS ---
History of Present Illness - Reason for Consult Chief Complaint: ACUTE RESP FAILURE WITH HYPOXIA, Date of Consultation Date: 01/20/24 Requesting Provider: DAVID MCKOY MD Consulting Provider: SYLVIA HITCHCOCK MD History of Present Illness: is a 78 year old male, no real chronic medical history other than alcohol abuse (was drinking about 12 beers a day until 12/29/23) who comes in with complaints of SOB, fatigue, and weakness. He is with his daughter Estela who is an ER doctor at the time of my exam. She tells me that she has noted patient has been having progressive shortness of breath for the past several weeks. Denies any weight gain - has been having weight loss - but does report some orthopnea and hypoxia. She tells me that she had reported his SOB to his doctor and also checked a pulse oximetry reading at home and noted saturations in the 88% range. On arrival in the ER here, again noted to be hypoxic requiring oxygen. His BNP level was quite high. Started on IV diuretics and has been improving significantly, though still requiring 2-3 L oxygen via nasal cannula. He had an echocardiogram performed which showed LVEF 20%. He tells me that overall he does feel much better in terms of his weakness, fatigue, and breathing. He wants to know when he can go home. - Review of Systems Constitutional: Fatigue Eyes: No Symptoms Ears, Nose, & Throat: No Symptoms Respiratory: Short Of Breath Cardiac: Orthopnea, No Chest Pain, No Edema, No Palpitations, No Syncope Abdominal/Gastrointestinal: No Symptoms Genitourinary Symptoms: No Symptoms Musculoskeletal: No Symptoms Neurological: No Symptoms Psychological: No Symptoms Endocrine: No Symptoms Hematologic/Lymphatic: No Symptoms Immunological/Allergic: No Symptoms Medications & Allergies Home Medications: Home Medication List Aspirin EC 81 mg [Ecotrin 81 mg] 81 mg PO DAILY 01/17/24 [History Confirmed 01/17/24] Allergies/Adverse Reactions: Allergies Allergy/AdvReac Type Severity Reaction Status Date / Time No Known Drug Allergies Allergy Verified 12/20/21 09:45 - Past Medical History Past Medical History: Yes Comment: stage 4 prostate cancer - Past Surgical History Past Surgical History: No - Social History Smoking Status: Current some day smoker How long have you smoked: years Exposure to second hand smoke: Yes Alcohol: None Drug Use: marijuana - Social Determinants of Health Will the patient participate in the screening: Declined to provide Do you worry about a steady place to live?: No Do you have any problems with any of the following?: No known problems In the past 12 months,have you had to go without utilities?: No Have you or anyone in your house had to go without enough: No Transportation Issues: No Has anyone in your support network made you feel unsafe?: No Does the patient want assistance with any of the above?: No - Physical Exam Vital Signs: Vital Signs - 24 hr Temp Pulse Resp BP Pulse Ox 01/20/24 15:49 97.8 F 78 16 110/59 95 01/20/24 11:35 97.4 F 73 16 120/69 94 L 01/20/24 11:24 80 20 94 L 01/20/24 07:35 97.6 F 67 16 125/70 95 01/20/24 05:05 76 18 92 L 01/20/24 04:00 97.9 F 75 17 117/68 94 L 01/19/24 23:55 98.5 F 77 18 121/68 94 L 01/19/24 20:00 97.5 F 80 20 117/62 90 L 01/19/24 19:15 78 18 90 L General Appearance: no apparent distress, thin Neurologic Exam: alert, oriented x 3, cooperative, check totaler II-XII nml as tested, normal mood/affect Eye Exam: No scleral icterus Ears, Nose, Throat Exam: normal ENT inspection Neck Exam: normal inspection, JVD Respiratory Exam: normal breath sounds, other (Using oxygen), No accessory muscle use Cardiovascular Exam: regular rate/rhythm, normal heart sounds, normal peripheral pulses, No murmur Gastrointestinal/Abdomen Exam: normal bowel sounds, distention, No tenderness Rectal Exam: not done Extremity Exam: normal inspection Skin Exam: normal color, other (cool extremities) Results - Labs Lab/Micro Results: Lab Results-Last 24 Hours 01/20/24 01/20/24 01/20/24 Range/Units 04:30 04:30 04:30 WBC 13.5 H (4.23-9.07) x10^3/uL RBC 4.42 L (4.63-6.08) x10^6/uL Hgb 14.4 (13.7-17.5) g/dL Hct 42.3 (40.1-51.0) % MCV 95.7 H (79.0-92.2) fL MCH 32.6 H (25.7-32.2) pg MCHC 34.0 (32.3-36.5) g/dL RDW 13.5 (11.6-14.4) % Plt Count 143 L (163-337) x10^3/uL MPV 11.5 (9.4-12.4) fL Gran % 70.6 H (34.0-67.9) % Immature Gran % (Auto) 2.1 H (0.001-0.429) % Nucleat RBC Rel Count 0.0 (0.00-0.2) % Eos # (Auto) 0 L (0.04-0.54) x10^3/uL Immature Gran # (Auto) 0.28 H (0.001-0.031) x10^3u/L Absolute Lymphs (auto) 2.69 (1.32-3.57) x10^3/uL Absolute Monos (auto) 0.97 H (0.30-0.82) x10^3/uL Absolute Nucleated RBC 0.00 (0.00-0.012) x10^3u/L Lymphocytes % 19.9 L (21.8-53.1) % Monocytes % 7.2 (5.3-12.2) % Eosinophils % 0.0 L (0.8-7.0) % Basophils % 0.2 (0.2-1.2) % Absolute Granulocytes 9.53 H (1.78-5.38) x10^3/uL Basophils # 0.03 (0.01-0.08) x10^3/uL Sodium 134 L (135-145) mmol/L Potassium 4.3 (3.5-5.1) mmol/L Chloride 98 (98-107) mmol/L Carbon Dioxide 26 (22-30) mmol/L Anion Gap 13.7 (5-15) MEQ/L BUN 19 (9-20) mg/dL Creatinine 0.56 L (0.66-1.25) mg/dL Estimated GFR 99.6 ML/MIN Glucose 135 H (74-106) mg/dL Calcium 9.4 (8.4-10.2) mg/dL Total Bilirubin 0.40 (0.2-1.3) mg/dL AST 66 H (17-59) U/L ALT 45 (0-50) U/L Alkaline Phosphatase 138 H (38-126) U/L Serum Total Protein 6.5 (6.3-8.2) g/dL Albumin 4.0 (3.5-5.0) g/dL Triglycerides 127 (30-150) mg/dL Cholesterol 215 H (50-200) mg/dL LDL Cholesterol 131 H (30-100) mg/dL HDL Cholesterol 64 H (40-60) mg/dL Heart Disease Risk Ratio 3.0 Microbiology 01/17/24 17:24 Blood Culture - Preliminary Blood 01/17/24 17:24 Blood Culture - Preliminary Blood - Other Procedures and Tests Labs, echo reviewed Assessment/Plan (1) CHF exacerbation Current Visit: Yes Status: Acute Qualifiers: Heart failure type: combined systolic and diastolic Qualified Code(s): I50.43 - Acute on chronic combined systolic (congestive) and diastolic (congestive) heart failure Assessment & Plan: - Still volume overloaded on exam, has JVD and still needing oxygen - Well perfused with no evidence of end organ dysfunction/hypoperfusion - Continue IV diuretics for now. 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 I did discuss with he and his daughter that an ischemic evaluation is indicated, via angiography, CCTA, or stress testing. In the absence of chest pain and symptoms consistent with ID I think it is OK to defer this until later on within the next few weeks when he can be seen by a java designer as an outpatient. They are agreeable with this plan. - Follow labs, I/Os, daily weights - Also discussed importance of teetotalism/alcohol cessation Sylvia Hitchcock M.D. [phone] Code(s): I50.9 - HEART FAILURE, UNSPECIFIED
[2024-01-20] MEDS: ZOCOR 20MG PO SCH (22:32)
--- NOTE | 2024-01-21 05:23 | PCM.NOTE ---
Date and Time: 01/21/24 0517 Subjective Assessment: Mr. Vincent is an 78 year old male with a PMHX of stage 4 prostate cancer, HTN, and COPD admitted 01/17/24 with CHF/COPD exacerbation after experiencing a month long history of progressive dyspnea. Upon presentation patient was hypoxic with saturations in the mid 80's, placed on 4L with noted improvement. CT chest w/contrast negative for PE - demonstrates Mild cardiomegaly with bilateral pleural effusion, and the possibility of decompensated heart disease need to be considered. Focal area of groundglass haziness with interstitial thickening in right upper lobe along the major fissure in the posterior segment. Possible infectious/inflammatory etiology. Lab findings remarkable initially for mild leukocytosis, hypochloremia, hyponatremia with sodium at 123, and troponins downtrending 0.056<0.079<0[place] [address]. Family interested in palliative care- CM working on this. Sodium levels improved. Dyspnea has improved. Requiring 2L oxygenation. Will set up home oxygen. Echo showing LVEF of 23% - Cardiology consulted with recommendations start low dose GDMT with lisinopril 5 mg daily and metoprolol succinate 12.5 mg daily. Cardiology did discuss with patient and daughter that an ischemic evaluation is indicated, via angiography, CCTA, or stress testing. In the absence of chest pain and symptoms consistent with [place] - plan for outpatient with cardiology follow up. They are agreeable to this plan. 01/18/24: Met with patient bedside. Endorses improvement of dyspnea. No edema noted on exam. Lung sounds with fine crackles to bilateral bases on auscultation. Remains at 4L NC, RA at baseline. Sodium levels have improved some. Echo pending. Plan for continuation of lasix and fluid restriction. Denies fever, cp, abdominal pain, LYN, dizziness, N/V/D. 01/19/24 No overnight events noted. Patient endorses continued improvement of dyspnea and cough. Oxygen requirements decreased to 2L-continue to wean. Sodium levels improving. Will continue Lasix/fluid restriction. Plan for discharge tomorrow if labs continue to improve. 01/20/24: Met and examined patient. Dyspnea has improved. He has qualified for home oxygen. Echo with 23% EF, cardiology consulted and pending. Sodium levels continue to improve. Will continue Lasix and fluid restriction. Discharge pending cards eval. Denies fever, cp, abdominal pain, LYN, dizziness, N/V/D. Objective Data Vital Signs: Vital Signs - 24 hr Temp Pulse Resp BP Pulse Ox 01/21/24 04:00 97.7 F 76 18 120/61 96 01/21/24 01:37 77 18 91 L 01/20/24 23:52 89 20 93 L 01/20/24 20:00 98.5 F 75 19 129/68 92 L 01/20/24 19:13 78 18 92 L 01/20/24 15:49 97.8 F 78 16 110/59 95 01/20/24 11:35 97.4 F 73 16 120/69 94 L 01/20/24 11:24 80 20 94 L 01/20/24 07:35 97.6 F 67 16 125/70 95 Pain Assessment - Last Documented Pain Intensity 0 Intake and Output: Intake & Output 01/18/24 01/19/24 01/20/24 01/21/24 11:59 11:59 11:59 11:59 Intake Total 805 430 3757 500 Output Total 800 2150 2950 6906 Balance -680 -0863 -1532 Weight 74.5 kg 74.3 kg 74.3 kg Lab Results: Lab Results-Last 24 Hours 01/18/24 01/20/24 01/20/24 Range/Units 18:06 04:30 04:30 Sodium 134 L (135-145) mmol/L Potassium 4.3 (3.5-5.1) mmol/L Chloride 98 (98-107) mmol/L Carbon Dioxide 26 (22-30) mmol/L Anion Gap 13.7 (5-15) MEQ/L BUN 19 (9-20) mg/dL Creatinine 0.56 L (0.66-1.25) mg/dL Estimated GFR 99.6 ML/MIN Glucose 135 H (74-106) mg/dL Calcium 9.4 (8.4-10.2) mg/dL Total Bilirubin 0.40 (0.2-1.3) mg/dL AST 66 H (17-59) U/L ALT 45 (0-50) U/L Alkaline Phosphatase 138 H (38-126) U/L Serum Total Protein 6.5 (6.3-8.2) g/dL Albumin 4.0 (3.5-5.0) g/dL Triglycerides 127 (30-150) mg/dL Cholesterol 215 H (50-200) mg/dL LDL Cholesterol 131 H (30-100) mg/dL HDL Cholesterol 64 H (40-60) mg/dL Heart Disease Risk Ratio 3.0 Urine Sodium 69 (30-90) mmol/L Multi-Disciplinary Progress Notes: Multi-Disciplinary Progress Notes 01/20/24 14:29 Case Management Note by Cielo Murphy [facility] DELIVERED PORTABLE CONCENTRATOR- PATIENT WILL USE THIS AT HOME 19/01 FOR THE NEXT DAY OR 2 UNTIL THEY DELIVER HIS HOME CONCENTRATOR. PATIENT GIVEN FABIOLA BROTHZEV INFORMATION BY REP. Initialized on 01/20/24 14:29 - END OF NOTE 01/20/24 14:00 Case Management Note by Cielo Murphy NOTIFIED PATIENT AND DAUGHTER THAT PATIENT MAY QUALIFY FOR A REHAB STAY-THEY ARE NOT INTERESTED IN THAT AT THIS TIME. WE ALSO DISCUSSED COST OF MEDICATIONS DC- SHE REPORTS PATIENT CAN AFFORD ANY MEDICATION HE NEEDS, MONEY IS NOT AN ISSUE. Initialized on 01/20/24 14:00 - END OF NOTE 01/20/24 13:11 Case Management Note by Cielo Murphy S/W PATIENT ABOUT PLANS AT DC. HE CONTINUES TO PLAN TO DC HOME TO HIS PLF. DAUGHTER IS STAYING UNTIL THURSDAY WITH PATIENT. SHE IS TRYING TO ARRANGE FOR OTHERS TO STAY WITH HIM WHILE SHE IS GONE IN [place] FOR WORK AGAIN. SHE WAS GIVEN LIST OF SITTERS FOR REFERENCE SHE WAS ALSO GIVEN NUMBER FOR MEALS ON WHEELS. [facility] HAS BEEN SET UP FOR HIM. PATIENT QUALIFIED FOR HOME OXYGEN- S/W DAUGHTER ABOUT WHAT COMPANY TO USE. THIS WAS ARRANGED FOR WITH FABIOLA MOTT. ORDERS FOR 2L/NC 19/01 SUBMITTED VIA [facility]. DELIVERY INSTRUCTIONS GIVEN VERBALLY TO DAUGHTER AND ALSO PLACED ON DC INSTRUCTIONS. PRIMARY RN GIVEN PULSE OX TO SEND HOME WITH PATIENT. Initialized on 01/20/24 13:11 - END OF NOTE 01/20/24 12:43 Case Management Note by Cielo Murphy [facility] HAS ACCEPTED- THEY WILL NEED NOTIFIED AT TIME OF DC AT [phone]. THEY WILL NEED FAXED THE DC INSTRUCTIONS, DC MED LIST AND DC SUMMARY TO [phone] Initialized on 01/20/24 12:43 - END OF NOTE 01/20/24 10:07 Respiratory Note by Lana Marquis Resting room air sat 88%. Placed on 2L NC sats 93% Initialized on 01/20/24 10:07 - END OF NOTE Assessment/Plan (1) Acute respiratory failure with hypoxia Current Visit: Yes Status: Acute Assessment & Plan: -Most likely secondary to CHF/COPD exacerbation -CT negative for PE - demonstrates Mild cardiomegaly with bilateral pleural effusion, and the possibility of decompensated heart disease need to be considered. Focal area of groundglass haziness with interstitial thickening in right upper lobe along the major fissure in the posterior segment. Possible infectious/inflammatory etiology -Supplemental oxygen with goal spo2 > 88-92% - 4L, baseline -RT eval -Nebs/bronchodilators -Ceftriaxone 01/19/24: -Continue ceftriaxone -Wean oxygen if able- qualify for home use if needed 01/19: -Qualifies for home oxygen - will arrange Code(s): J96.01 - ACUTE RESPIRATORY FAILURE WITH HYPOXIA (2) CHF exacerbation Current Visit: Yes Status: Acute Assessment & Plan: -BNP 97010 -echo ordered and pending -Lasix 40mg BID -elevated HOB, Daily weights, continuous tele -optimize electrolytes with goal K>4, MG>2 -consider cards consult 01/18: -Cardiology consult -echo read- low EF at 23% 01/19: -Cards consult pending- appreciate recs -continue lasix/fluid restriction Code(s): I50.9 - HEART FAILURE, UNSPECIFIED (3) COPD exacerbation Current Visit: Yes Status: Acute Assessment & Plan: -may be secondary to infectious cause/CHF exacerbation -RT following -NEBS/bronchodilators -Ceftriaxtone -solu-medrol -supplemental oxygen with goal spo2 88-9% - titrate -PPI Code(s): J44.1 - CHRONIC OBSTRUCTIVE PULMONARY DISEASE W (ACUTE) EXACERBATION (4) Hyponatremia Current Visit: Yes Status: Acute Assessment & Plan: -Continue Lasix -1.5L fluid restriction -monitor renal lytes -check TSH, lipid, BMP q4H -urine sodium/osmo -serum osmo 01/18: -Improving now at 130, will continue to monitor 01/19: -Na level at 134 - continue lasix/fluid restriction Code(s): E87.1 - HYPO-OSMOLALITY AND HYPONATREMIA (5) Pleural effusion Current Visit: Yes Status: Acute Assessment & Plan: -see plan for CHF Code(s): J90 - PLEURAL EFFUSION, NOT ELSEWHERE CLASSIFIED (6) Troponin level elevated Current Visit: Yes Status: Acute Assessment & Plan: -trops downtrending -repeat EKG -Echo -consider cards consult -Most likely respiratory vs cardiac cause 01/18: -Cardiology consulted appreciate recs Code(s): J96.01 - ACUTE RESPIRATORY FAILURE WITH HYPOXIA (2) CHF exacerbation Current Visit: Yes Status: Acute Qualifiers: Heart failure type: combined systolic and diastolic Qualified Code(s): I50.43 - Acute on chronic combined systolic (congestive) and diastolic (congestive) heart failure Code(s): I50.9 - HEART FAILURE, UNSPECIFIED (3) COPD exacerbation Current Visit: Yes Status: Acute Code(s): J44.1 - CHRONIC OBSTRUCTIVE PULMONARY DISEASE W (ACUTE) EXACERBATION (4) Hyponatremia Current Visit: Yes Status: Acute Code(s): E87.1 - HYPO-OSMOLALITY AND HYPONATREMIA (5) Pleural effusion Current Visit: Yes Status: Acute Code(s): J90 - PLEURAL EFFUSION, NOT ELSEWHERE CLASSIFIED (6) Troponin level elevated Current Visit: Yes Status: Acute Code(s): R79.89 - OTHER SPECIFIED ABNORMAL FINDINGS OF BLOOD CHEMISTRY
[2024-01-21 05:31] LABS: BASOPHIL % 0.3 % (0.2-1.2); Basophil (Absolute #) 0.05 x10^3/uL (0.01-0.08); Eosinophil % 0.1 % (0.8-7.0); Eosinophil (Absolute #) 0.01 x10^3/uL (0.04-0.54); Hemoglobin 14.7 g/dL (13.7-17.5); IMMATURE GRAN # 0.32 x10^3u/L (0.001-0.031); IMMATURE GRAN % 2.2 % (0.001-0.429); Lymphocyte (Absolute #) 3.15 x10^3/uL (1.32-3.57); Lymphocytes % 21.7 % (21.8-53.1); Mean Cell Volume 94.9 fL (79.0-92.2); Mean Corpuscular Hemoglobin 32.5 pg (25.7-32.2); Mean Corpuscular Hgb Concent. 34.2 g/dL (32.3-36.5); Mean Platelet Volume 11.4 fL (9.4-12.4); Monocyte (Absolute #) 1.39 x10^3/uL (0.30-0.82); Monocytes % 9.6 % (5.3-12.2); Neutrophil % 66.1 % (34.0-67.9); Platelet Count 153 x10^3/uL (163-337); Red Blood Count 4.53 x10^6/uL (4.63-6.08); Red Cell Distribution Width 13.6 % (11.6-14.4); White Blood Count 14.5 x10^3/uL (4.23-9.07)
[2024-01-21 06:20] LABS: ALBUMIN 3.9 g/dL (3.5-5.0); ANION GAP 14.2 MEQ/L (5-15); BILIRUBIN,TOTAL 0.5 mg/dL (0.2-1.3); Calcium 9.4 mg/dL (8.4-10.2); Creatinine 1 0.56 mg/dL (0.66-1.25); EST GLOMERULAR FILTRATION RATE 99.6 ML/MIN; Total Protein 6.5 g/dL (6.3-8.2)
--- NOTE | 2024-01-21 07:48 | PCM.NOTE ---
Date and Time: 01/21/24737 Subjective Assessment: Overnight no major events. Patient says he urinated quite a bit. Still on 3 L/min of oxygen, saturations 96%. He tells me that he feels OK. Has walked around to the bathroom but not much else. No chest pain, lightheadedness, dizziness, etc. Objective Exam General Appearance: no apparent distress, alert Neurologic Exam: alert, oriented x 3, normal mood/affect Skin Exam: normal color, warm Eye Exam: EOMI Neck Exam: normal inspection, JVD Respiratory Exam: normal breath sounds, lungs clear, No chest tenderness, No accessory muscle use Cardiovascular Exam: regular rate/rhythm, normal heart sounds, capillary refill <2 sec, No murmur Gastrointestinal/Abdomen Exam: soft, normal bowel sounds Extremity Exam: normal inspection, No joint swelling, No swelling Back Exam: normal inspection Rectal Exam: deferred Objective Data Vital Signs: Vital Signs - 24 hr Temp Pulse Resp BP Pulse Ox 01/21/24 07:04 97.5 F 75 21 118/68 97 01/21/24 06:47 77 20 93 L 01/21/24 04:00 97.7 F 76 18 120/61 96 01/21/24 01:37 77 18 91 L 01/20/24 23:52 89 20 93 L 01/20/24 20:00 98.5 F 75 19 129/68 92 L 01/20/24 19:13 78 18 92 L 01/20/24 15:49 97.8 F 78 16 110/59 95 01/20/24 11:35 97.4 F 73 16 120/69 94 L 01/20/24 11:24 80 20 94 L Pain Assessment - Last Documented Pain Intensity 0 Intake and Output: Intake & Output 01/19/24 01/20/24 01/21/24 01/22/24 06:59 06:59 06:59 06:59 Intake Total 300 1340 1080 Output Total 1600 3500 4965 Balance -2705 -2157 -5359 Weight 74.3 kg 67 kg Lab Results: Lab Results-Last 24 Hours 01/18/24 01/21/24 01/21/24 Range/Units 18:06 04:59 04:59 WBC 14.5 H (4.23-9.07) x10^3/uL RBC 4.53 L (4.63-6.08) x10^6/uL Hgb 14.7 (13.7-17.5) g/dL Hct 43.0 (40.1-51.0) % MCV 94.9 H (79.0-92.2) fL MCH 32.5 H (25.7-32.2) pg MCHC 34.2 (32.3-36.5) g/dL RDW 13.6 (11.6-14.4) % Plt Count 153 L (163-337) x10^3/uL MPV 11.4 (9.4-12.4) fL Gran % 66.1 (34.0-67.9) % Immature Gran % (Auto) 2.2 H (0.001-0.429) % Nucleat RBC Rel Count 0.0 (0.00-0.2) % Eos # (Auto) 0.01 L (0.04-0.54) x10^3/uL Immature Gran # (Auto) 0.32 H (0.001-0.031) x10^3u/L Absolute Lymphs (auto) 3.15 (1.32-3.57) x10^3/uL Absolute Monos (auto) 1.39 H (0.30-0.82) x10^3/uL Absolute Nucleated RBC 0.00 (0.00-0.012) x10^3u/L Lymphocytes % 21.7 L (21.8-53.1) % Monocytes % 9.6 (5.3-12.2) % Eosinophils % 0.1 L (0.8-7.0) % Basophils % 0.3 (0.2-1.2) % Absolute Granulocytes 9.60 H (1.78-5.38) x10^3/uL Basophils # 0.05 (0.01-0.08) x10^3/uL Sodium 132 L (135-145) mmol/L Potassium 4.0 (3.5-5.1) mmol/L Chloride 94 L (98-107) mmol/L Carbon Dioxide 28 (22-30) mmol/L Anion Gap 14.2 (5-15) MEQ/L BUN 23 H (9-20) mg/dL Creatinine 0.56 L (0.66-1.25) mg/dL Estimated GFR 99.6 ML/MIN Glucose 113 H (74-106) mg/dL Calcium 9.4 (8.4-10.2) mg/dL Total Bilirubin 0.50 (0.2-1.3) mg/dL AST 79 H (17-59) U/L ALT 50 (0-50) U/L Alkaline Phosphatase 156 H (38-126) U/L Serum Total Protein 6.5 (6.3-8.2) g/dL Albumin 3.9 (3.5-5.0) g/dL Urine Sodium 69 (30-90) mmol/L Multi-Disciplinary Progress Notes: Multi-Disciplinary Progress Notes 01/20/24 14:29 Case Management Note by Cielo Murphy DELIVERED PORTABLE CONCENTRATOR- PATIENT WILL USE THIS AT HOME 19/01 FOR THE NEXT DAY OR 2 UNTIL THEY DELIVER HIS HOME CONCENTRATOR. PATIENT GIVEN FABIOLA CARIAS INFORMATION BY REP. Initialized on 01/20/24 14:29 - END OF NOTE 01/20/24 14:00 Case Management Note by Cielo Murphy NOTIFIED PATIENT AND DAUGHTER THAT PATIENT MAY QUALIFY FOR A REHAB STAY-THEY ARE NOT INTERESTED IN THAT AT THIS TIME. WE ALSO DISCUSSED COST OF MEDICATIONS DC- SHE REPORTS PATIENT CAN AFFORD ANY MEDICATION HE NEEDS, MONEY IS NOT AN ISSUE. Initialized on 01/20/24 14:00 - END OF NOTE 01/20/24 13:11 Case Management Note by Cielo Murphy S/W PATIENT ABOUT PLANS AT DC. HE CONTINUES TO PLAN TO DC HOME TO HIS PLF. DAUGHTER IS STAYING UNTIL THURSDAY WITH PATIENT. SHE IS TRYING TO ARRANGE FOR OTHERS TO STAY WITH HIM WHILE SHE IS GONE IN [place] FOR WORK AGAIN. SHE WAS GIVEN LIST OF SITTERS FOR REFERENCE SHE WAS ALSO GIVEN NUMBER FOR MEALS ON WHEELS. [facility] HAS BEEN SET UP FOR HIM. PATIENT QUALIFIED FOR HOME OXYGEN- S/W DAUGHTER ABOUT WHAT COMPANY TO USE. THIS WAS ARRANGED FOR WITH FABIOLA MOTT. ORDERS FOR 2L/NC 19/01 SUBMITTED VIA [facility]. DELIVERY INSTRUCTIONS GIVEN VERBALLY TO DAUGHTER AND ALSO PLACED ON DC INSTRUCTIONS. PRIMARY RN GIVEN PULSE OX TO SEND HOME WITH PATIENT. Initialized on 01/20/24 13:11 - END OF NOTE 01/20/24 12:43 Case Management Note by Cielo Murphy [facility] HAS ACCEPTED- THEY WILL NEED NOTIFIED AT TIME OF DC AT [phone]. THEY WILL NEED FAXED THE DC INSTRUCTIONS, DC MED LIST AND DC SUMMARY TO [phone] Initialized on 01/20/24 12:43 - END OF NOTE 01/20/24 10:07 Respiratory Note by Lana Marquis Resting room air sat 88%. Placed on 2L NC sats 93% Initialized on 01/20/24 10:07 - END OF NOTE Assessment/Plan (1) CHF exacerbation Current Visit: Yes Status: Acute Qualifiers: Heart failure type: combined systolic and diastolic Qualified Code(s): I50.43 - Acute on chronic combined systolic (congestive) and diastolic (congestive) heart failure Assessment & Plan: - Volume status improving. Still with some slight JVD and on oxygen - I think if he can be weaned off of oxygen and is ambulating without desatur ations then can be switched to PO diuretics, like Lasix 20 mg PO Daily - Well perfused with no evidence of end organ dysfunction/hypoperfusion - Started on low dose GDMT with lisinopril 5 mg daily and metoprolol succinate 12.5 mg daily - Tomorrow can consider adding Spironolactone 12.5 mg PO daily as long as BP is > 110/60 mmHg. This can also be done as an outpatient if he ends up getting discharged today. 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 I did discuss with he and his daughter on 01/20/24 that an ischemic evaluation is indicated, via angiography, CCTA, or stress testing. In the absence of chest pain and symptoms consistent with [place] I think it is OK to defer this until later on within the next few weeks when he can be seen by a vehicle upholsterer as an outpatient. They were agreeable with this plan. - Follow labs, I/Os, daily weights - Also discussed importance of teetotalism/alcohol cessation Code(s): I50.9 - HEART FAILURE, UNSPECIFIED Telemedicine Encounter - Telemedicine Encounter Telemedicine Encounter: "The entirety of this encounter was performed via Telemedicine" This visit was performed using real-time audio and video connection between my location and thepatients locationwith the assistance of a surrogateat the patients location. Written or verbal consent was obtained from the patient/guardian to perform this visit usingsynchronoustelemedicine technology. Any patient questions regarding the telemedicine interaction were answered.
[2024-01-21 07:58] LABS: Slide Review 1 YES
[2024-01-21] MEDS: Toprol-Xl 25MG Tablets PO SCH (10:02)
[2024-01-21] MEDS: Zestril 5 MG PO SCH (10:03)
[2024-01-21] MEDS ORDERED: LOPRESSOR INJECTION IV ONE (11:02)
[2024-01-21] MEDS ORDERED: Lanoxin 0.5 MG/2 ML INJECTION ONE (11:16)
[2024-01-21] MEDS ORDERED: Sodium Chloride 0.9% 1000 ML 1,000 ML ONE (11:19)
[2024-01-21] MEDS: NEXTERONE 360 MG/200 ML BAG 360 MG/200 ML PLAST..BAG IV SCH (11:28)
[2024-01-21] MEDS: LOPRESSOR INJECTION IV ONE (11:32)
[2024-01-21 11:45] LABS: ANION GAP 15.5 MEQ/L (5-15); Calcium 9.8 mg/dL (8.4-10.2); Creatinine 1 0.61 mg/dL (0.66-1.25); EST GLOMERULAR FILTRATION RATE 97.1 ML/MIN; MAGNESIUM 2.1 mg/dL (1.6-2.3); Potassium 4.2 mmol/L (3.5-5.1)
[2024-01-21] MEDS ORDERED: Cordarone 150 MG/3 ML Injection ONE (13:00)
[2024-01-21 14:05] LABS: Hematocrit 45.6 % (40.1-51.0); Hemoglobin 15.2 g/dL (13.7-17.5); Mean Cell Volume 96.8 fL (79.0-92.2); Mean Corpuscular Hemoglobin 32.3 pg (25.7-32.2); Mean Corpuscular Hgb Concent. 33.3 g/dL (32.3-36.5); Mean Platelet Volume 10.6 fL (9.4-12.4); Platelet Count 149 x10^3/uL (163-337); Red Blood Count 4.71 x10^6/uL (4.63-6.08); Red Cell Distribution Width 13.5 % (11.6-14.4); White Blood Count 15.8 x10^3/uL (4.23-9.07)
[2024-01-21] MEDS: HEPARIN 5000 UNITS/0.5 ML (HIGH RISK MED) IV STA (14:15)
[2024-01-21 14:18] LABS: INR 1.27 (0.8-3.0); PROTIME 13.6 SECONDS (9.4-12.5); PTT 28.1 SECONDS (25.1-36.5)
[2024-01-21] MEDS: Heparin 25,000 units/D5W: USE ORDER SET PROTO 25,000 UNITS/250 ML BAG IV SCH (14:29)
[2024-01-21] MEDS ORDERED: HEPARIN 5000 UNITS/0.5 ML (HIGH RISK MED) IV PRN (14:46)
--- NOTE | 2024-01-21 15:51 | PCM.NOTE ---
Date and Time: 01/21/24 1544 Subjective Assessment: Mr. Vincent is an 78 year old male with a PMHX of stage 4 prostate cancer, HTN, and COPD admitted 01/17/24 with CHF/COPD exacerbation after experiencing a month long history of progressive dyspnea. Upon presentation patient was hypoxic with saturations in the mid 80's, placed on 4L with noted improvement. CT chest w/contrast negative for PE - demonstrates Mild cardiomegaly with bilateral pleural effusion, and the possibility of decompensated heart disease need to be considered. Focal area of groundglass haziness with interstitial thickening in right upper lobe along the major fissure in the posterior segment. Possible infectious/inflammatory etiology. Lab findings remarkable initially for mild leukocytosis, hypochloremia, hyponatremia with sodium at 123, and troponins downtrending 0.056<0.079<[place] [address]. Family interested in palliative care- CM working on this. Sodium levels improved. Dyspnea has improved. Requiring 2L oxygenation. Will set up home oxygen. Echo showing LVEF of 23% - Cardiology consulted with recommendations start low dose GDMT with lisinopril 5 mg daily and metoprolol succinate 12.5 mg daily. Cardiology did discuss with patient and daughter that an ischemic evaluation is indicated, via angiography, CCTA, or stress testing. In the absence of chest pain and symptoms consistent with IA - plan for outpatient with cardiology follow up. They are agreeable to this plan. 01/18/24: Met with patient bedside. Endorses improvement of dyspnea. No edema noted on exam. Lung sounds with fine crackles to bilateral bases on auscultation. Remains at 4L NC, RA at baseline. Sodium levels have improved some. Echo pending. Plan for continuation of lasix and fluid restriction. Denies fever, cp, abdominal pain, LYN, dizziness, N/V/D. 01/19/24 No overnight events noted. Patient endorses continued improvement of dyspnea and cough. Oxygen requirements decreased to 2L-continue to wean. Sodium levels improving. Will continue Lasix/fluid restriction. Plan for discharge tomorrow if labs continue to improve. 01/20/24: Met and examined patient. Dyspnea has improved. He has qualified for home oxygen. Echo with 23% EF, cardiology consulted and pending. Sodium levels continue to improve. Will continue Lasix and fluid restriction. Discharge pending cards eval. Denies fever, cp, abdominal pain, LYN, dizziness, N/V/D. 01/21/24: No overnight events noted. Dyspnea improved on, remains on oxygen. Rapid response called due to reported Vtach. Patient asymptomatic -Afib RVR noted on EKG - IVF -metoprolol/digoxin IVP given and amiodarone gtt started - EKG now showing NS. Cardiology following patient - will continue amiodarone for 24 hours and heparin drip started. - Review of Systems Constitutional: No Symptoms Eyes: No Symptoms Ears, Nose, & Throat: No Symptoms Respiratory: Short Of Breath Cardiac: No Symptoms Abdominal/Gastrointestinal: No Symptoms Genitourinary Symptoms: No Symptoms Musculoskeletal: No Symptoms Skin: No Symptoms Neurological: No Symptoms Psychological: No Symptoms Endocrine: No Symptoms Hematologic/Lymphatic: No Symptoms Immunological/Allergic: No Symptoms Objective Exam General Appearance: no apparent distress Neurologic Exam: alert, oriented x 3, cooperative Skin Exam: normal color Eye Exam: PERRL Ears, Nose, Throat Exam: normal ENT inspection Neck Exam: JVD Respiratory Exam: normal breath sounds, lungs clear Gastrointestinal/Abdomen Exam: soft, normal bowel sounds Extremity Exam: normal inspection Back Exam: normal inspection Male Genitalia Exam: deferred Rectal Exam: deferred Objective Data Vital Signs: Vital Signs - 24 hr Temp Pulse Resp BP BP Pulse Ox 01/21/24 15:00 65 23 107/59 95 01/21/24 14:30 70 23 110/59 95 01/21/24 14:00 67 17 109/63 96 01/21/24 13:30 68 16 106/57 87 L 01/21/24 13:00 64 23 115/64 99 01/21/24 12:31 70 23 111/67 01/21/24 12:00 70 23 97/65 01/21/24 11:48 67 17 105/63 98 01/21/24 11:29 67 16 96/61 97 01/21/24 11:24 97 H 27 H 94/68 95 01/21/24 10:53 151 H 28 H 96 01/21/24 10:50 157 H 28 H 96 01/21/24 10:40 165 H 36 H 91/60 88 L 01/21/24 07:04 97.5 F 75 21 118/68 97 01/21/24 06:47 77 20 93 L 01/21/24 04:00 97.7 F 76 18 120/61 96 01/21/24 01:37 77 18 91 L 01/20/24 23:52 89 20 93 L 01/20/24 20:00 98.5 F 75 19 129/68 92 L 01/20/24 19:13 78 18 92 L 01/20/24 15:49 97.8 F 78 16 110/59 95 Pain Assessment - Last Documented Pain Intensity 0 Intake and Output: Intake & Output 01/19/24 01/20/24 01/21/24 01/22/24 11:59 11:59 11:59 11:59 Intake Total 760 1340 740 120 Output Total 2150 2950 2925 Balance -1390 -1610 -2185 120 Weight 74.3 kg 67 kg Lab Results: Lab Results-Last 24 Hours 01/18/24 01/21/24 01/21/24 Range/Units 18:06 04:59 04:59 WBC 14.5 H (4.23-9.07) x10^3/uL RBC 4.53 L (4.63-6.08) x10^6/uL Hgb 14.7 (13.7-17.5) g/dL Hct 43.0 (40.1-51.0) % MCV 94.9 H (79.0-92.2) fL MCH 32.5 H (25.7-32.2) pg MCHC 34.2 (32.3-36.5) g/dL RDW 13.6 (11.6-14.4) % Plt Count 153 L (163-337) x10^3/uL MPV 11.4 (9.4-12.4) fL Gran % 66.1 (34.0-67.9) % Immature Gran % (Auto) 2.2 H (0.001-0.429) % Nucleat RBC Rel Count 0.0 (0.00-0.2) % Eos # (Auto) 0.01 L (0.04-0.54) x10^3/uL Immature Gran # (Auto) 0.32 H (0.001-0.031) x10^3u/L Absolute Lymphs (auto) 3.15 (1.32-3.57) x10^3/uL Absolute Monos (auto) 1.39 H (0.30-0.82) x10^3/uL Absolute Nucleated RBC 0.00 (0.00-0.012) x10^3u/L Lymphocytes % 21.7 L (21.8-53.1) % Monocytes % 9.6 (5.3-12.2) % Eosinophils % 0.1 L (0.8-7.0) % Basophils % 0.3 (0.2-1.2) % Absolute Granulocytes 9.60 H (1.78-5.38) x10^3/uL Basophils # 0.05 (0.01-0.08) x10^3/uL PT (9.4-12.5) SECONDS INR (0.8-3.0) APTT (25.1-36.5) SECONDS D-Dimer (0.0-0.50) mg/L Sodium 132 L (135-145) mmol/L Potassium 4.0 (3.5-5.1) mmol/L Chloride 94 L (98-107) mmol/L Carbon Dioxide 28 (22-30) mmol/L Anion Gap 14.2 (5-15) MEQ/L BUN 23 H (9-20) mg/dL Creatinine 0.56 L (0.66-1.25) mg/dL Estimated GFR 99.6 ML/MIN Glucose 113 H (74-106) mg/dL Calcium 9.4 (8.4-10.2) mg/dL Magnesium (1.6-2.3) mg/dL Total Bilirubin 0.50 (0.2-1.3) mg/dL AST 79 H (17-59) U/L ALT 50 (0-50) U/L Alkaline Phosphatase 156 H (38-126) U/L Serum Total Protein 6.5 (6.3-8.2) g/dL Albumin 3.9 (3.5-5.0) g/dL Urine Sodium 69 (30-90) mmol/L Slides for Path Review YES 01/21/24 01/21/24 01/21/24 Range/Units 11:08 11:25 13:55 WBC 15.8 H (4.23-9.07) x10^3/uL RBC 4.71 (4.63-6.08) x10^6/uL Hgb 15.2 (13.7-17.5) g/dL Hct 45.6 (40.1-51.0) % MCV 96.8 H (79.0-92.2) fL MCH 32.3 H (25.7-32.2) pg MCHC 33.3 (32.3-36.5) g/dL RDW 13.5 (11.6-14.4) % Plt Count 149 L (163-337) x10^3/uL MPV 10.6 (9.4-12.4) fL Gran % (34.0-67.9) % Immature Gran % (Auto) (0.001-0.429) % Nucleat RBC Rel Count (0.00-0.2) % Eos # (Auto) (0.04-0.54) x10^3/uL Immature Gran # (Auto) (0.001-0.031) x10^3u/L Absolute Lymphs (auto) (1.32-3.57) x10^3/uL Absolute Monos (auto) (0.30-0.82) x10^3/uL Absolute Nucleated RBC (0.00-0.012) x10^3u/L Lymphocytes % (21.8-53.1) % Monocytes % (5.3-12.2) % Eosinophils % (0.8-7.0) % Basophils % (0.2-1.2) % Absolute Granulocytes (1.78-5.38) x10^3/uL Basophils # (0.01-0.08) x10^3/uL PT (9.4-12.5) SECONDS INR (0.8-3.0) APTT (25.1-36.5) SECONDS D-Dimer > 35.20 H* (0.0-0.50) mg/L Sodium 132 L (135-145) mmol/L Potassium 4.2 (3.5-5.1) mmol/L Chloride 94 L (98-107) mmol/L Carbon Dioxide 27 (22-30) mmol/L Anion Gap 15.5 H (5-15) MEQ/L BUN 25 H (9-20) mg/dL Creatinine 0.61 L (0.66-1.25) mg/dL Estimated GFR 97.1 ML/MIN Glucose 122 H (74-106) mg/dL Calcium 9.8 (8.4-10.2) mg/dL Magnesium 2.1 (1.6-2.3) mg/dL Total Bilirubin (0.2-1.3) mg/dL AST (17-59) U/L ALT (0-50) U/L Alkaline Phosphatase (38-126) U/L Serum Total Protein (6.3-8.2) g/dL Albumin (3.5-5.0) g/dL Urine Sodium (30-90) mmol/L Slides for Path Review 01/21/24 Range/Units 13:55 WBC (4.23-9.07) x10^3/uL RBC (4.63-6.08) x10^6/uL Hgb (13.7-17.5) g/dL Hct (40.1-51.0) % MCV (79.0-92.2) fL MCH (25.7-32.2) pg MCHC (32.3-36.5) g/dL RDW (11.6-14.4) % Plt Count (163-337) x10^3/uL MPV (9.4-12.4) fL Gran % (34.0-67.9) % Immature Gran % (Auto) (0.001-0.429) % Nucleat RBC Rel Count (0.00-0.2) % Eos # (Auto) (0.04-0.54) x10^3/uL Immature Gran # (Auto) (0.001-0.031) x10^3u/L Absolute Lymphs (auto) (1.32-3.57) x10^3/uL Absolute Monos (auto) (0.30-0.82) x10^3/uL Absolute Nucleated RBC (0.00-0.012) x10^3u/L Lymphocytes % (21.8-53.1) % Monocytes % (5.3-12.2) % Eosinophils % (0.8-7.0) % Basophils % (0.2-1.2) % Absolute Granulocytes (1.78-5.38) x10^3/uL Basophils # (0.01-0.08) x10^3/uL PT 13.6 H (9.4-12.5) SECONDS INR 1.27 (0.8-3.0) APTT 28.1 (25.1-36.5) SECONDS D-Dimer (0.0-0.50) mg/L Sodium (135-145) mmol/L Potassium (3.5-5.1) mmol/L Chloride (98-107) mmol/L Carbon Dioxide (22-30) mmol/L Anion Gap (5-15) MEQ/L BUN (9-20) mg/dL Creatinine (0.66-1.25) mg/dL Estimated GFR ML/MIN Glucose (74-106) mg/dL Calcium (8.4-10.2) mg/dL Magnesium (1.6-2.3) mg/dL Total Bilirubin (0.2-1.3) mg/dL AST (17-59) U/L ALT (0-50) U/L Alkaline Phosphatase (38-126) U/L Serum Total Protein (6.3-8.2) g/dL Albumin (3.5-5.0) g/dL Urine Sodium (30-90) mmol/L Slides for Path Review Multi-Disciplinary Progress Notes: Multi-Disciplinary Progress Notes 01/21/24 14:39 Case Management Note by Roxanne Ingram PATIENT HAD A CHANGE IN MEDICAL STATUS TODAY AND WAS CHANGED TO ICU STATUS. WILL ADDRESS DC PLANS AGAIN TOMORROW. Initialized on 01/21/24 14:39 - END OF NOTE Assessment/Plan (1) Acute respiratory failure with hypoxia Current Visit: Yes Status: Acute Assessment & Plan: -Most likely secondary to CHF/COPD exacerbation -CT negative for PE - demonstrates Mild cardiomegaly with bilateral pleural effusion, and the possibility of decompensated heart disease need to be considered. Focal area of groundglass haziness with interstitial thickening in right upper lobe along the major fissure in the posterior segment. Possible infectious/inflammatory etiology -Supplemental oxygen with goal spo2 > 88-92% - 4L, baseline -RT eval -Nebs/bronchodilators -Ceftriaxone 01/19/24: -Continue ceftriaxone -Wean oxygen if able- qualify for home use if needed 01/19: -Qualifies for home oxygen - will arrange Code(s): J96.01 - ACUTE RESPIRATORY FAILURE WITH HYPOXIA (2) CHF exacerbation Current Visit: Yes Status: Acute Assessment & Plan: -BNP 69233 -echo ordered and pending -Lasix 40mg BID -elevated HOB, Daily weights, continuous tele -optimize electrolytes with goal K>4, MG>2 -consider cards consult 01/18: -Cardiology consult -echo read- low EF at 23% 01/19: -Cards consult pending- appreciate recs -continue lasix/fluid restriction 01/20: -cardiology note reviewed, agree with plan - low dose GDMT with lisinopril 5 mg daily and metoprolol succinate 12.5 mg daily -can consider adding Spironolactone 12.5 mg PO daily as long as BP is > 110/60 mmHg. Code(s): I50.9 - HEART FAILURE, UNSPECIFIED (3) COPD exacerbation Current Visit: Yes Status: Acute Assessment & Plan: -may be secondary to infectious cause/CHF exacerbation -RT following -NEBS/bronchodilators -Ceftriaxtone -solu-medrol -supplemental oxygen with goal spo2 88-9% - titrate -PPI 01/20: -Home oxygen arranged -continue above management Code(s): J44.1 - CHRONIC OBSTRUCTIVE PULMONARY DISEASE W (ACUTE) EXACERBATION (4) Hyponatremia Current Visit: Yes Status: Acute Assessment & Plan: -Continue Lasix -1.5L fluid restriction -monitor renal lytes -check TSH, lipid, BMP q4H -urine sodium/osmo -serum osmo 01/18: -Improving now at 130, will continue to monitor 01/19: -Na level at 134 - continue lasix/fluid restriction 01/20: -Continue lasix/fluid restriction - patient did receive fluids during RR will d/c Code(s): E87.1 - HYPO-OSMOLALITY AND HYPONATREMIA (5) Pleural effusion Current Visit: Yes Status: Acute Assessment & Plan: -see plan for CHF Code(s): J90 - PLEURAL EFFUSION, NOT ELSEWHERE CLASSIFIED (6) Troponin level elevated Current Visit: Yes Status: Acute Assessment & Plan: -trops downtrending -repeat EKG -Echo -consider cards consult -Most likely respiratory vs cardiac cause 01/18: -Cardiology consulted appreciate recs Code(s): J96.01 - ACUTE RESPIRATORY FAILURE WITH HYPOXIA (7) AFIB RVR -Cardiology consulted - EKG now NS- continue amiodarone gtt for 24 hours/heparin drip - will follow -Repeat Echo pending Code(s): J96.01 - ACUTE RESPIRATORY FAILURE WITH HYPOXIA (2) CHF exacerbation Current Visit: Yes Status: Acute Qualifiers: Heart failure type: combined systolic and diastolic Qualified Code(s): I50.43 - Acute on chronic combined systolic (congestive) and diastolic (congestive) heart failure Code(s): I50.9 - HEART FAILURE, UNSPECIFIED (3) COPD exacerbation Current Visit: Yes Status: Acute Code(s): J44.1 - CHRONIC OBSTRUCTIVE PUL MONARY DISEASE W (ACUTE) EXACERBATION (4) Hyponatremia Current Visit: Yes Status: Acute Code(s): E87.1 - HYPO-OSMOLALITY AND HYPONATREMIA (5) Pleural effusion Current Visit: Yes Status: Acute Code(s): J90 - PLEURAL EFFUSION, NOT ELSEWHERE CLASSIFIED (6) Troponin level elevated Current Visit: Yes Status: Acute Code(s): R79.89 - OTHER SPECIFIED ABNORMAL FINDINGS OF BLOOD CHEMISTRY
[2024-01-21 16:13] LABS: ANION GAP 12.4 MEQ/L (5-15); BILIRUBIN,TOTAL 0.5 mg/dL (0.2-1.3); Calcium 9.6 mg/dL (8.4-10.2); Creatinine 1 0.73 mg/dL (0.66-1.25); Potassium 4.1 mmol/L (3.5-5.1); Total Protein 6.6 g/dL (6.3-8.2)
[2024-01-22 05:25] LABS: Absolute Neutrophil Ct (ANC) 8.33 x10^3/uL (1.78-5.38); BASOPHIL % 0.4 % (0.2-1.2); Basophil (Absolute #) 0.05 x10^3/uL (0.01-0.08); Eosinophil % 0.2 % (0.8-7.0); Eosinophil (Absolute #) 0.02 x10^3/uL (0.04-0.54); Hematocrit 43.9 % (40.1-51.0); Hemoglobin 14.7 g/dL (13.7-17.5); IMMATURE GRAN # 0.32 x10^3u/L (0.001-0.031); IMMATURE GRAN % 2.5 % (0.001-0.429); Lymphocytes % 24.7 % (21.8-53.1); Mean Cell Volume 97.1 fL (79.0-92.2); Mean Corpuscular Hemoglobin 32.5 pg (25.7-32.2); Mean Corpuscular Hgb Concent. 33.5 g/dL (32.3-36.5); Mean Platelet Volume 11.2 fL (9.4-12.4); Monocyte (Absolute #) 1.04 x10^3/uL (0.30-0.82); Neutrophil % 64.2 % (34.0-67.9); Platelet Count 146 x10^3/uL (163-337); Red Blood Count 4.52 x10^6/uL (4.63-6.08); Red Cell Distribution Width 13.8 % (11.6-14.4)
[2024-01-22 05:29] LABS: ALBUMIN 3.9 g/dL (3.5-5.0); BILIRUBIN,TOTAL 0.4 mg/dL (0.2-1.3); Calcium 9.3 mg/dL (8.4-10.2); Creatinine 1 0.58 mg/dL (0.66-1.25); EST GLOMERULAR FILTRATION RATE 98.6 ML/MIN; Potassium 4.4 mmol/L (3.5-5.1); Total Protein 6.4 g/dL (6.3-8.2)
[2024-01-22] MEDS: Aldactone 25 MG PO SCH (08:47)
[2024-01-22 12:45] VITALS: TEMP 97.6
--- NOTE | 2024-01-22 13:58 | PCM.NOTE ---
Date and Time: 01/22/24 9457 Subjective Assessment: Mr. Vincent is an 78 year old male with a PMHX of stage 4 prostate cancer, HTN, and COPD admitted 01/17/24 with CHF/COPD exacerbation after experiencing a month long history of progressive dyspnea. Upon presentation patient was hypoxic with saturations in the mid 80's, placed on 4L with noted improvement. CT chest w/contrast negative for PE - demonstrates Mild cardiomegaly with bilateral pleural effusion, and the possibility of decompensated heart disease need to be considered. Focal area of groundglass haziness with interstitial thickening in right upper lobe along the major fissure in the posterior segment. Possible infectious/inflammatory etiology. Lab findings remarkable initially for mild leukocytosis, hypochloremia, hyponatremia with sodium at 123, and troponins downtrending 0.056<0.079<0[place] [address]. Family interested in palliative care- CM working on this. Sodium levels improved. Dyspnea has improved. Requiring 2L oxygenation. Will set up home oxygen. Echo showing LVEF of 23% - Cardiology consulted with recommendations start low dose GDMT with lisinopril 5 mg daily and metoprolol succinate 12.5 mg daily. Cardiology did discuss with patient and daughter that an ischemic evaluation is indicated, via angiography, CCTA, or stress testing. In the absence of chest pain and symptoms consistent with [place] - plan for outpatient with cardiology follow up. They are agreeable to this plan. During hospital course 01/21/24 RR called due to AFIB RVR. Patient placed on amiodarone drip and given IV metoprolol and digoxin- heparin drip started. Patient has remained in sinus rhythm. 01/18/24: Met with patient bedside. Endorses improvement of dyspnea. No edema noted on exam. Lung sounds with fine crackles to bilateral bases on auscultation. Remains at 4L NC, RA at baseline. Sodium levels have improved some. Echo pending. Plan for continuation of lasix and fluid restriction. Denies fever, cp, abdominal pain, LYN, dizziness, N/V/D. 01/19/24 No overnight events noted. Patient endorses continued improvement of dyspnea and cough. Oxygen requirements decreased to 2L-continue to wean. Sodium levels improving. Will continue Lasix/fluid restriction. Plan for discharge tomorrow if labs continue to improve. 01/20/24: Met and examined patient. Dyspnea has improved. He has qualified for home oxygen. Echo with 23% EF, cardiology consulted and pending. Sodium levels continue to improve. Will continue Lasix and fluid restriction. Discharge pending cards eval. Denies fever, cp, abdominal pain, LYN, dizziness, N/V/D. 01/21/24: No overnight events noted. Dyspnea improved on, remains on oxygen. Rapid response called due to reported Vtach. Patient asymptomatic -Afib RVR noted on EKG - IVF -metoprolol/digoxin IVP given and amiodarone gtt started - EKG now showing NS. Cardiology following patient - will continue amiodarone for 24 hours and heparin drip started. 01/22/24: Patient doing well. Remains in sinus rhythm. HR in the 60's. Endorses dyspnea requiring 2L oxygen otherwise no complaints. Cardiology has removed heparin drip - changed to Eliquis. Continue Lasix IV today, will start PO tomorrow. Denies fever,cough,cp, abdominal pain, LYN, dizziness, N/V/D. - Review of Systems Constitutional: No Symptoms Eyes: No Symptoms Ears, Nose, & Throat: No Symptoms Respiratory: Short Of Breath Cardiac: No Symptoms Abdominal/Gastrointestinal: No Symptoms Genitourinary Symptoms: No Symptoms Musculoskeletal: No Symptoms Skin: No Symptoms Neurological: No Symptoms Psychological: No Symptoms Endocrine: No Symptoms Hematologic/Lymphatic: No Symptoms Immunological/Allergic: No Symptoms Objective Exam General Appearance: no apparent distress Neurologic Exam: alert, oriented x 3, cooperative Skin Exam: normal color Eye Exam: PERRL Ears, Nose, Throat Exam: normal ENT inspection Neck Exam: normal inspection Respiratory Exam: normal breath sounds, crackles/rales Cardiovascular Exam: regular rate/rhythm, normal heart sounds Gastrointestinal/Abdomen Exam: soft, normal bowel sounds Extremity Exam: normal inspection Back Exam: normal inspection Male Genitalia Exam: deferred Rectal Exam: deferred Objective Data Vital Signs: Vital Signs - 24 hr Temp Pulse Resp BP Pulse Ox 01/22/24 12:00 97.6 F 65 16 110/62 96 01/22/24 11:00 58 L 22 109/60 95 01/22/24 10:01 60 29 H 106/56 95 01/22/24 09:00 66 22 129/80 94 L 01/22/24 08:00 97.3 F 56 L 17 113/55 95 01/22/24 07:01 62 23 127/83 95 01/22/24 06:56 52 L 20 97 01/22/24 06:00 53 L 18 110/53 97 01/22/24 05:00 52 L 18 107/57 95 01/22/24 04:00 98 F 56 L 17 101/53 95 01/22/24 03:00 61 24 114/57 98 01/22/24 02:00 57 L 17 110/56 95 01/22/24 01:12 55 L 20 99 01/22/24 01:00 60 25 H 113/64 92 L 01/22/24 00:30 98.4 F 01/22/24 00:01 59 L 01/22/24 00:00 58 L 19 109/62 93 L 01/21/24 23:53 100 01/21/24 23:00 56 L 22 111/59 94 L 01/21/24 22:00 61 20 115/64 93 L 01/21/24 21:00 59 L 22 113/64 93 L 01/21/24 20:00 60 25 H 102/49 95 01/21/24 19:43 61 01/21/24 19:33 97.6 F 59 L 30 H 98/49 96 01/21/24 19:10 63 20 94 L 01/21/24 19:00 60 38 H 100/56 96 01/21/24 18:31 63 18 106/67 97 01/21/24 18:01 67 28 H 116/71 98 01/21/24 17:32 70 16 122/72 98 01/21/24 17:00 97.6 F 71 19 110/58 98 01/21/24 16:31 56 L 25 H 112/62 97 01/21/24 16:00 59 L 21 116/64 97 01/21/24 15:30 63 32 H 109/59 97 01/21/24 15:00 65 23 107/59 95 01/21/24 14:30 70 23 110/59 95 01/21/24 14:00 67 17 109/63 96 Pain Assessment - Last Documented Pain Intensity 0 Intake and Output: Intake & Output 01/20/24 01/21/24 01/22/24 01/23/24 11:59 11:59 11:59 11:59 Intake Total 0871 163 2927 340 Output Total 2847 5118 1929 Balance -1610 -2185 -249 340 Weight 67 kg 67.4 kg Lab Results: Lab Results-Last 24 Hours 01/21/24 01/21/24 01/21/24 Range/Units 13:55 13:55 13:55 WBC 15.8 H (4.23-9.07) x10^3/uL RBC 4.71 (4.63-6.08) x10^6/uL Hgb 15.2 (13.7-17.5) g/dL Hct 45.6 (40.1-51.0) % MCV 96.8 H (79.0-92.2) fL MCH 32.3 H (25.7-32.2) pg MCHC 33.3 (32.3-36.5) g/dL RDW 13.5 (11.6-14.4) % Plt Count 149 L (163-337) x10^3/uL MPV 10.6 (9.4-12.4) fL Gran % (34.0-67.9) % Immature Gran % (Auto) (0.001-0.429) % Nucleat RBC Rel Count (0.00-0.2) % Eos # (Auto) (0.04-0.54) x10^3/uL Immature Gran # (Auto) (0.001-0.031) x10^3u/L Absolute Lymphs (auto) (1.32-3.57) x10^3/uL Absolute Monos (auto) (0.30-0.82) x10^3/uL Absolute Nucleated RBC (0.00-0.012) x10^3u/L Lymphocytes % (21.8-53.1) % Monocytes % (5.3-12.2) % Eosinophils % (0.8-7.0) % Basophils % (0.2-1.2) % Absolute Granulocytes (1.78-5.38) x10^3/uL Basophils # (0.01-0.08) x10^3/uL PT 13.6 H (9.4-12.5) SECONDS INR 1.27 (0.8-3.0) APTT 28.1 (25.1-36.5) SECONDS Sodium 134 L (135-145) mmol/L Potassium 4.1 (3.5-5.1) mmol/L Chloride 94 L (98-107) mmol/L Carbon Dioxide 31 H (22-30) mmol/L Anion Gap 12.4 (5-15) MEQ/L BUN 28 H (9-20) mg/dL Creatinine 0.73 (0.66-1.25) mg/dL Estimated GFR 92.0 ML/MIN Glucose 118 H (74-106) mg/dL Calcium 9.6 (8.4-10.2) mg/dL Total Bilirubin 0.50 (0.2-1.3) mg/dL AST 88 H (17-59) U/L ALT 48 (0-50) U/L Alkaline Phosphatase 141 H (38-126) U/L Serum Total Protein 6.6 (6.3-8.2) g/dL Albumin 4.0 (3.5-5.0) g/dL 01/21/24 01/21/24 01/22/24 Range/Units 17:50 21:55 04:56 WBC 13.0 H (4.23-9.07) x10^3/uL RBC 4.52 L (4.63-6.08) x10^6/uL Hgb 14.7 (13.7-17.5) g/dL Hct 43.9 (40.1-51.0) % MCV 97.1 H (79.0-92.2) fL MCH 32.5 H (25.7-32.2) pg MCHC 33.5 (32.3-36.5) g/dL RDW 13.8 (11.6-14.4) % Plt Count 146 L (163-337) x10^3/uL MPV 11.2 (9.4-12.4) fL Gran % 64.2 (34.0-67.9) % Immature Gran % (Auto) 2.5 H (0.001-0.429) % Nucleat RBC Rel Count 0.0 (0.00-0.2) % Eos # (Auto) 0.02 L (0.04-0.54) x10^3/uL Immature Gran # (Auto) 0.32 H (0.001-0.031) x10^3u/L Absolute Lymphs (auto) 3.20 (1.32-3.57) x10^3/uL Absolute Monos (auto) 1.04 H (0.30-0.82) x10^3/uL Absolute Nucleated RBC 0.00 (0.00-0.012) x10^3u/L Lymphocytes % 24.7 (21.8-53.1) % Monocytes % 8.0 (5.3-12.2) % Eosinophils % 0.2 L (0.8-7.0) % Basophils % 0.4 (0.2-1.2) % Absolute Granulocytes 8.33 H (1.78-5.38) x10^3/uL Basophils # 0.05 (0.01-0.08) x10^3/uL PT (9.4-12.5) SECONDS INR (0.8-3.0) APTT 62.5 H 67.8 H (25.1-36.5) SECONDS Sodium (135-145) mmol/L Potassium (3.5-5.1) mmol/L Chloride (98-107) mmol/L Carbon Dioxide (22-30) mmol/L Anion Gap (5-15) MEQ/L BUN (9-20) mg/dL Creatinine (0.66-1.25) mg/dL Estimated GFR ML/MIN Glucose (74-106) mg/dL Calcium (8.4-10.2) mg/dL Total Bilirubin (0.2-1.3) mg/dL AST (17-59) U/L ALT (0-50) U/L Alkaline Phosphatase (38-126) U/L Serum Total Protein (6.3-8.2) g/dL Albumin (3.5-5.0) g/dL 01/22/24 01/22/24 01/22/24 Range/Units 04:56 04:56 10:05 WBC (4.23-9.07) x10^3/uL RBC (4.63-6.08) x10^6/uL Hgb (13.7-17.5) g/dL Hct (40.1-51.0) % MCV (79.0-92.2) fL MCH (25.7-32.2) pg MCHC (32.3-36.5) g/dL RDW (11.6-14.4) % Plt Count (163-337) x10^3/uL MPV (9.4-12.4) fL Gran % (34.0-67.9) % Immature Gran % (Auto) (0.001-0.429) % Nucleat RBC Rel Count (0.00-0.2) % Eos # (Auto) (0.04-0.54) x10^3/uL Immature Gran # (Auto) (0.001-0.031) x10^3u/L Absolute Lymphs (auto) (1.32-3.57) x10^3/uL Absolute Monos (auto) (0.30-0.82) x10^3/uL Absolute Nucleated RBC (0.00-0.012) x10^3u/L Lymphocytes % (21.8-53.1) % Monocytes % (5.3-12.2) % Eosinophils % (0.8-7.0) % Basophils % (0.2-1.2) % Absolute Granulocytes (1.78-5.38) x10^3/uL Basophils # (0.01-0.08) x10^3/uL PT (9.4-12.5) SECONDS INR (0.8-3.0) APTT 86.0 H 71.5 H (25.1-36.5) SECONDS Sodium 132 L (135-145) mmol/L Potassium 4.4 (3.5-5.1) mmol/L Chloride 95 L (98-107) mmol/L Carbon Dioxide 29 (22-30) mmol/L Anion Gap 13.0 (5-15) MEQ/L BUN 28 H (9-20) mg/dL Creatinine 0.58 L (0.66-1.25) mg/dL Estimated GFR 98.6 ML/MIN Glucose 116 H (74-106) mg/dL Calcium 9.3 (8.4-10.2) mg/dL Total Bilirubin 0.40 (0.2-1.3) mg/dL AST 72 H (17-59) U/L ALT 57 H (0-50) U/L Alkaline Phosphatase 138 H (38-126) U/L Serum Total Protein 6.4 (6.3-8.2) g/dL Albumin 3.9 (3.5-5.0) g/dL Multi-Disciplinary Progress Notes: Multi-Disciplinary Progress Notes 01/22/24 11:41 Case Management Note by Roxanne Ingram S/W PATIENT AND HE STILL PLANS TO RETURN HOME WITH PALLITIVE CARE WHEN HE IS DISCHARGED. I ALSO S/W DAUGHTER AND SHE AGREED THAT PATIENT WILL GO HOME UPON DC UNLESS SOMETHING SIGNIFICANTLY CHANGES. Initialized on 01/22/24 11:41 - END OF NOTE 01/21/24 14:39 Case Management Note by Roxanne Ingram PATIENT HAD A CHANGE IN MEDICAL STATUS TODAY AND WAS CHANGED TO ICU STATUS. WILL ADDRESS DC PLANS AGAIN TOMORROW. Initialized on 01/21/24 14:39 - END OF NOTE Assessment/Plan (1) Acute respiratory failure with hypoxia Current Visit: Yes Status: Acute Assessment & Plan: -Most likely secondary to CHF/COPD exacerbation -CT negative for PE - demonstrates Mild cardiomegaly with bilateral pleural effusion, and the possibility of decompensated heart disease need to be considered. Focal area of groundglass haziness with interstitial thickening in right upper lobe along the major fissure in the posterior segment. Possible infectious/inflammatory etiology -Supplemental oxygen with goal spo2 > 88-92% - 4L, baseline -RT eval -Nebs/bronchodilators -Ceftriaxone 01/19/24: -Continue ceftriaxone -Wean oxygen if able- qualify for home use if needed 01/19: -Qualifies for home oxygen - will arrange Code(s): J96.01 - ACUTE RESPIRATORY FAILURE WITH HYPOXIA (2) CHF exacerbation Current Visit: Yes Status: Acute Assessment & Plan: -BNP 20827 -echo ordered and pending -Lasix 40mg BID -elevated HOB, Daily weights, continuous tele -optimize electrolytes with goal K>4, MG>2 -consider cards consult 01/18: -Cardiology consult -echo read- low EF at 23% -consider life vest -cards follow up OP 01/19: -Cards consult pending- appreciate recs -continue lasix/fluid restriction 01/20: -cardiology note reviewed, agree with plan - low dose GDMT with lisinopril 5 mg daily and metoprolol succinate 12.5 mg daily -can consider adding Spironolactone 12.5 mg PO daily as long as BP is > 110/60 mmHg. 01/21: -Continue diuresing patient with IV lasix, convert to Po tomorrow Code(s): I50.9 - HEART FAILURE, UNSPECIFIED (3) COPD exacerbation Current Visit: Yes Status: Acute Assessment & Plan: -may be secondary to infectious cause/CHF exacerbation -RT following -NEBS/bronchodilators -Ceftriaxtone -solu-medrol -supplemental oxygen with goal spo2 88-92% - titrate -PPI 01/20: -Home oxygen arranged -continue above management Code(s): J44.1 - CHRONIC OBSTRUCTIVE PULMONARY DISEASE W (ACUTE) EXACERBATION (4) Hyponatremia Current Visit: Yes Status: Acute Assessment & Plan: -Continue Lasix -1.5L fluid restriction -monitor renal lytes -check TSH, lipid, BMP q4H -urine sodium/osmo -serum osmo 01/18: -Improving now at 130, will continue to monitor 01/19: -Na level at 134 - continue lasix/fluid restriction 01/20: -Continue lasix/fluid restriction - patient did receive fluids during RR will d/c 01/21: -Stable at 132- continue above management Code(s): E87.1 - HYPO-OSMOLALITY AND HYPONATREMIA (5) Pleural effusion Current Visit: Yes Status: Acute Assessment & Plan: -see plan for CHF Code(s): J90 - PLEURAL EFFUSION, NOT ELSEWHERE CLASSIFIED (6) Troponin level elevated Current Visit: Yes Status: Acute Assessment & Plan: -trops downtrending -repeat EKG -Echo -consider cards consult -Most likely respiratory vs cardiac cause 01/18: -Cardiology consulted appreciate recs Code(s): J96.01 - ACUTE RESPIRATORY FAILURE WITH HYPOXIA (7) AFIB RVR -Cardiology consulted - EKG now NS- continue amiodarone gtt for 24 hours/heparin drip - will follow -Repeat Echo pending 01/21: -amiodarone/heparin drip discontinued -Eliquis started Code(s): J96.01 - ACUTE RESPIRATORY FAILURE WITH HYPOXIA Code(s): J96.01 - ACUTE RESPIRATORY FAILURE WITH HYPOXIA (2) CHF exacerbation Current Visit: Yes Status: Acute Qualifiers: Heart failure type: combined systolic and diastolic Qualified Code(s): I50.43 - Acute on chronic combined systolic (congestive) and diastolic (congestive) heart failure Code(s): I50.9 - HEART FAILURE, UNSPECIFIED (3) COPD exacerbation Current Visit: Yes Status: Acute Code(s): J44.1 - CHRONIC OBSTRUCTIVE PULMONARY DISEASE W (ACUTE) EXACERBATION (4) Hyponatremia Current Visit: Yes Status: Acute Code(s): E87.1 - HYPO-OSMOLALITY AND HYPONATREMIA (5) Pleural effusion Current Visit: Yes Status: Acute Code(s): J90 - PLEURAL EFFUSION, NOT ELSEWHERE CLASSIFIED (6) Troponin level elevated Current Visit: Yes Status: Acute Code(s): R79.89 - OTHER SPECIFIED ABNORMAL FINDINGS OF BLOOD CHEMISTRY
[2024-01-22 16:36] VITALS: BP 129/82; PULSE 65; RESP 28; O2SAT 92
--- NOTE | 2024-01-22 17:06 | PCM.NOTE ---
Date and Time: 01/22/24 1701 Subjective Assessment: Patient's rate much better today, back in sinus rhythm. He says he is feeling OK. NO swelling. No chest pain. He is still requiring oxygen - saturations down to 84% when oxygen turned off. Exam General:: alert and oriented x 4, no acute distress, thin HEENT: EOMI, No JVD Cardiovascular: Regular Rate & Rhythm, no murmurs,rubs,gallops, No edema Respiratory:: clear to auscultation foster, normal breath sounds O2 Delivery: Nasal Cannula Abdominal: active bowel sounds x 4, distention, No tenderness Extremity Exam: normal inspection, warm, well perfused, No clubbing, No edema Neurologic: normal mood/affect, No motor deficits Objective Data Vital Signs: Vital Signs - 24 hr Temp Pulse Resp BP Pulse Ox 01/22/24 16:00 65 28 H 129/82 92 L 01/22/24 15:00 64 23 102/50 94 L 01/22/24 14:10 60 24 95 01/22/24 14:01 62 21 111/55 99 01/22/24 13:21 60 18 104/51 96 01/22/24 12:00 97.6 F 65 16 110/62 96 01/22/24 11:00 58 L 22 109/60 95 01/22/24 10:01 60 29 H 106/56 95 01/22/24 09:00 66 22 129/80 94 L 01/22/24 08:00 97.3 F 56 L 17 113/55 95 01/22/24 07:01 62 23 127/83 95 01/22/24 06:56 52 L 20 97 01/22/24 06:00 53 L 18 110/53 97 01/22/24 05:00 52 L 18 107/57 95 01/22/24 04:00 98 F 56 L 17 101/53 95 01/22/24 03:00 61 24 114/57 98 01/22/24 02:00 57 L 17 110/56 95 01/22/24 01:12 55 L 20 99 01/22/24 01:00 60 25 H 113/64 92 L 01/22/24 00:30 98.4 F 01/22/24 00:01 59 L 01/22/24 00:00 58 L 19 109/62 93 L 01/21/24 23:53 100 01/21/24 23:00 56 L 22 111/59 94 L 01/21/24 22:00 61 20 115/64 93 L 01/21/24 21:00 59 L 22 113/64 93 L 01/21/24 20:00 60 25 H 102/49 95 01/21/24 19:43 61 01/21/24 19:33 97.6 F 59 L 30 H 98/49 96 01/21/24 19:10 63 20 94 L 01/21/24 19:00 60 38 H 100/56 96 01/21/24 18:31 63 18 106/67 97 01/21/24 18:01 67 28 H 116/71 98 01/21/24 17:32 70 16 122/72 98 Pain Assessment - Last Documented Pain Intensity 0 Intake and Output: Intake & Output 01/20/24 01/21/24 01/22/24 01/23/24 06:59 06:59 06:59 06:59 Intake Total 1340 1080 1916 340 Output Total 3500 0865 1925 400 Balance -2160 -1445 -9 -60 Weight 67 kg 67.4 kg LAB: I have reviewed the Labs in [facility]. Lab Results: Lab Results-Last 24 Hours 01/21/24 01/21/24 01/22/24 Range/Units 17:50 21:55 04:56 WBC 13.0 H (4.23-9.07) x10^3/uL RBC 4.52 L (4.63-6.08) x10^6/uL Hgb 14.7 (13.7-17.5) g/dL Hct 43.9 (40.1-51.0) % MCV 97.1 H (79.0-92.2) fL MCH 32.5 H (25.7-32.2) pg MCHC 33.5 (32.3-36.5) g/dL RDW 13.8 (11.6-14.4) % Plt Count 146 L (163-337) x10^3/uL MPV 11.2 (9.4-12.4) fL Gran % 64.2 (34.0-67.9) % Immature Gran % (Auto) 2.5 H (0.001-0.429) % Nucleat RBC Rel Count 0.0 (0.00-0.2) % Eos # (Auto) 0.02 L (0.04-0.54) x10^3/uL Immature Gran # (Auto) 0.32 H (0.001-0.031) x10^3u/L Absolute Lymphs (auto) 3.20 (1.32-3.57) x10^3/uL Absolute Monos (auto) 1.04 H (0.30-0.82) x10^3/uL Absolute Nucleated RBC 0.00 (0.00-0.012) x10^3u/L Lymphocytes % 24.7 (21.8-53.1) % Monocytes % 8.0 (5.3-12.2) % Eosinophils % 0.2 L (0.8-7.0) % Basophils % 0.4 (0.2-1.2) % Absolute Granulocytes 8.33 H (1.78-5.38) x10^3/uL Basophils # 0.05 (0.01-0.08) x10^3/uL APTT 62.5 H 67.8 H (25.1-36.5) SECONDS Sodium (135-145) mmol/L Potassium (3.5-5.1) mmol/L Chloride (98-107) mmol/L Carbon Dioxide (22-30) mmol/L Anion Gap (5-15) MEQ/L BUN (9-20) mg/dL Creatinine (0.66-1.25) mg/dL Estimated GFR ML/MIN Glucose (74-106) mg/dL Calcium (8.4-10.2) mg/dL Total Bilirubin (0.2-1.3) mg/dL AST (17-59) U/L ALT (0-50) U/L Alkaline Phosphatase (38-126) U/L Serum Total Protein (6.3-8.2) g/dL Albumin (3.5-5.0) g/dL 01/22/24 01/22/24 01/22/24 Range/Units 04:56 04:56 10:05 WBC (4.23-9.07) x10^3/uL RBC (4.63-6.08) x10^6/uL Hgb (13.7-17.5) g/dL Hct (40.1-51.0) % MCV (79.0-92.2) fL MCH (25.7-32.2) pg MCHC (32.3-36.5) g/dL RDW (11.6-14.4) % Plt Count (163-337) x10^3/uL MPV (9.4-12.4) fL Gran % (34.0-67.9) % Immature Gran % (Auto) (0.001-0.429) % Nucleat RBC Rel Count (0.00-0.2) % Eos # (Auto) (0.04-0.54) x10^3/uL Immature Gran # (Auto) (0.001-0.031) x10^3u/L Absolute Lymphs (auto) (1.32-3.57) x10^3/uL Absolute Monos (auto) (0.30-0.82) x10^3/uL Absolute Nucleated RBC (0.00-0.012) x10^3u/L Lymphocytes % (21.8-53.1) % Monocytes % (5.3-12.2) % Eosinophils % (0.8-7.0) % Basophils % (0.2-1.2) % Absolute Granulocytes (1.78-5.38) x10^3/uL Basophils # (0.01-0.08) x10^3/uL APTT 86.0 H 71.5 H (25.1-36.5) SECONDS Sodium 132 L (135-145) mmol/L Potassium 4.4 (3.5-5.1) mmol/L Chloride 95 L (98-107) mmol/L Carbon Dioxide 29 (22-30) mmol/L Anion Gap 13.0 (5-15) MEQ/L BUN 28 H (9-20) mg/dL Creatinine 0.58 L (0.66-1.25) mg/dL Estimated GFR 98.6 ML/MIN Glucose 116 H (74-106) mg/dL Calcium 9.3 (8.4-10.2) mg/dL Total Bilirubin 0.40 (0.2-1.3) mg/dL AST 72 H (17-59) U/L ALT 57 H (0-50) U/L Alkaline Phosphatase 138 H (38-126) U/L Serum Total Protein 6.4 (6.3-8.2) g/dL Albumin 3.9 (3.5-5.0) g/dL 01/22/24 Range/Units 14:08 WBC (4.23-9.07) x10^3/uL RBC (4.63-6.08) x10^6/uL Hgb (13.7-17.5) g/dL Hct (40.1-51.0) % MCV (79.0-92.2) fL MCH (25.7-32.2) pg MCHC (32.3-36.5) g/dL RDW (11.6-14.4) % Plt Count (163-337) x10^3/uL MPV (9.4-12.4) fL Gran % (34.0-67.9) % Immature Gran % (Auto) (0.001-0.429) % Nucleat RBC Rel Count (0.00-0.2) % Eos # (Auto) (0.04-0.54) x10^3/uL Immature Gran # (Auto) (0.001-0.031) x10^3u/L Absolute Lymphs (auto) (1.32-3.57) x10^3/uL Absolute Monos (auto) (0.30-0.82) x10^3/uL Absolute Nucleated RBC (0.00-0.012) x10^3u/L Lymphocytes % (21.8-53.1) % Monocytes % (5.3-12.2) % Eosinophils % (0.8-7.0) % Basophils % (0.2-1.2) % Absolute Granulocytes (1.78-5.38) x10^3/uL Basophils # (0.01-0.08) x10^3/uL APTT 56.9 H (25.1-36.5) SECONDS Sodium (135-145) mmol/L Potassium (3.5-5.1) mmol/L Chloride (98-107) mmol/L Carbon Dioxide (22-30) mmol/L Anion Gap (5-15) MEQ/L BUN (9-20) mg/dL Creatinine (0.66-1.25) mg/dL Estimated GFR ML/MIN Glucose (74-106) mg/dL Calcium (8.4-10.2) mg/dL Total Bilirubin (0.2-1.3) mg/dL AST (17-59) U/L ALT (0-50) U/L Alkaline Phosphatase (38-126) U/L Serum Total Protein (6.3-8.2) g/dL Albumin (3.5-5.0) g/dL - ECHO Echo: report reviewed by me Multi-Disciplinary Progress Notes: Multi-Disciplinary Progress Notes 01/22/24 11:41 Case Management Note by Roxanne Ingram S/W PATIENT AND HE STILL PLANS TO RETURN HOME WITH PALLITIVE CARE WHEN HE IS DISCHARGED. I ALSO S/W DAUGHTER AND SHE AGREED THAT PATIENT WILL GO HOME UPON DC UNLESS SOMETHING SIGNIFICANTLY CHANGES. Initialized on 01/22/24 11:41 - END OF NOTE Assessment & Plan (1) CHF exacerbation Current Visit: Yes Status: Acute Qualifiers: Heart failure type: combined systolic and diastolic Qualified Code(s): I50.43 - Acute on chronic combined systolic (congestive) and diastolic (congestive) heart failure Assessment & Plan: - Volume status improving. Looks euvolemic but still requiring oxygen - I think can probably be switched to PO diuretics tomorrow - Would strongly advise against discharging on oxygen. Very unusual for patients with CHF to need oxygen if they are truly euvolemic. 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 I did discuss with he and his daughter on 01/20/24 that an ischemic evaluation is indicated, via angiography, CCTA, or stress testing. In the absence of chest pain and symptoms consistent with [place] I think it is OK to defer this until later on within the next few weeks when he can be seen by a city planner as an outpatient. They were agreeable with this plan. He has an appointment 01/27 - I also discussed Life[employer] with him. He is agreeable. - Follow labs, I/Os, daily weights - Also discussed importance of teetotalism/alcohol cessation on 01/20/24 Code(s): I50.9 - HEART FAILURE, UNSPECIFIED Code(s): I50.9 - HEART FAILURE, UNSPECIFIED (2) Paroxysmal atrial fibrillation Current Visit: Yes Status: Acute Code(s): I48.0 - PAROXYSMAL ATRIAL FIBRILLATION - Encounter Encounter: "The entirety of this encounter was performed via Telemedicine using audio and visual "
--- NOTE | 2024-01-22 17:49 | PCM.DS ---
Discharge Summary Date of Admission: 01/18/24 05:43 Date of Discharge: 01/22/24 Admitting Physician: DAVID MCKOY MD Consults: Consults on Case 01/19/24 12:38 Consult Cardiology ROUTINE Primary Care Provider: VIDHYA PACHECO Allergies Allergies No Known Drug Allergies Allergy (Verified 12/20/21 09:45) Hospital Summary - Hospital Course Hospital Course: Mr. Vincent is an 78 year old male with a PMHX of stage 4 prostate cancer, HTN, and COPD admitted 01/17/24 with CHF/COPD exacerbation after experiencing a month long history of progressive dyspnea. Upon presentation patient was hypoxic with saturations in the mid 80's, placed on 4L with noted improvement. CT chest w/contrast negative for PE - demonstrates Mild cardiomegaly with bilateral pleural effusion, and the possibility of decompensated heart disease need to be considered. Focal area of groundglass haziness with interstitial thickening in right upper lobe along the major fissure in the posterior segment. Possible infectious/inflammatory etiology. Lab findings remarkable initially for mild leukocytosis, hypochloremia, hyponatremia with sodium at 123, and troponins downtrending 0.056<0.079<[place] [address]. Family interested in palliative care- CM working on this. Sodium levels improved. Dyspnea has improved. Requiring 2L oxygenation. Will set up home oxygen. Echo showing LVEF of 23% - Cardiology consulted with recommendations start low dose GDMT with lisinopril 5 mg daily and metoprolol succinate 12.5 mg daily. Cardiology did discuss with patient and daughter that an ischemic evaluation is indicated, via angiography, CCTA, or stress testing. In the absence of chest pain and symptoms consistent with HI - plan for outpatient with cardiology follow up. They are agreeable to this plan. During hospital course 01/21/24 RR called due to AFIB RVR. Patient placed on amiodarone drip and given IV metoprolol and digoxin- heparin drip started. Patient has remained in sinus rhythm. 01/18/24: Met with patient bedside. Endorses improvement of dyspnea. No edema noted on exam. Lung sounds with fine crackles to bilateral bases on auscultation. Remains at 4L NC, RA at baseline. Sodium levels have improved some. Echo pending. Plan for continuation of lasix and fluid restriction. Denies fever, cp, abdominal pain, LYN, dizziness, N/V/D. 01/19/24 No overnight events noted. Patient endorses continued improvement of dyspnea and cough. Oxygen requirements decreased to 2L-continue to wean. Sodium levels improving. Will continue Lasix/fluid restriction. Plan for discharge tomorrow if labs continue to improve. 01/20/24: Met and examined patient. Dyspnea has improved. He has qualified for home oxygen. Echo with 23% EF, cardiology consulted and pending. Sodium levels continue to improve. Will continue Lasix and fluid restriction. Discharge pending cards eval. Denies fever, cp, abdominal pain, LYN, dizziness, N/V/D. 01/21/24: No overnight events noted. Dyspnea improved on, remains on oxygen. Rapid response called due to reported Vtach. Patient asymptomatic -Afib RVR noted on EKG - IVF -metoprolol/digoxin IVP given and amiodarone gtt started - EKG now showing NS. Cardiology following patient - will continue amiodarone for 24 hours and heparin drip started. 01/22/24: Patient doing well. Remains in sinus rhythm. HR in the 60's. Endorses dyspnea requiring 2L oxygen otherwise no complaints. Cardiology has removed heparin drip - changed to Eliquis. Continue Lasix IV today, will start PO tomorrow. Denies fever,cough,cp, abdominal pain, LYN, dizziness, N/V/D. Patient and daughter requesting transfer to higher level of care. Transfer attempted to [facility] but they refused transfer as they agree n ischemic evaluation is indicated but patient needs to be medically stable prior. The patient has decided to leave against medical advice. The risks have been explained to the patient, including worsening illness, chronic pain, permanent disability and . The patient was treated to the extent that they would allow and knows that they may return for care at any time - Vitals & Intake/Output Vital Signs: Vital Signs Temperature 97.6 F 01/22/24 12:00 Pulse Rate 65 01/22/24 16:00 Respiratory Rate 28 H 01/22/24 16:00 Blood Pressure 129/82 01/22/24 16:00 O2 Sat by Pulse Oximetry 92 L 01/22/24 16:00 Intake & Output: Intake & Output 01/20/24 01/21/24 01/22/24 01/23/24 11:59 11:59 11:59 11:59 Intake Total 1641.358.1741 340 Output Total 6877 2586 4681 Balance -1610 -2185 -249 340 Weight 67 kg 67.4 kg - Lab Result Diagrams: 01/22/24 04:56 01/22/24 04:56 Lab Results-Last 24 Hrs: Lab Results-Last 24 Hours 01/21/24 01/21/24 01/22/24 Range/Units 17:50 21:55 04:56 WBC 13.0 H (4.23-9.07) x10^3/uL RBC 4.52 L (4.63-6.08) x10^6/uL Hgb 14.7 (13.7-17.5) g/dL Hct 43.9 (40.1-51.0) % MCV 97.1 H (79.0-92.2) fL MCH 32.5 H (25.7-32.2) pg MCHC 33.5 (32.3-36.5) g/dL RDW 13.8 (11.6-14.4) % Plt Count 146 L (163-337) x10^3/uL MPV 11.2 (9.4-12.4) fL Gran % 64.2 (34.0-67.9) % Immature Gran % (Auto) 2.5 H (0.001-0.429) % Nucleat RBC Rel Count 0.0 (0.00-0.2) % Eos # (Auto) 0.02 L (0.04-0.54) x10^3/uL Immature Gran # (Auto) 0.32 H (0.001-0.031) x10^3u/L Absolute Lymphs (auto) 3.20 (1.32-3.57) x10^3/uL Absolute Monos (auto) 1.04 H (0.30-0.82) x10^3/uL Absolute Nucleated RBC 0.00 (0.00-0.012) x10^3u/L Lymphocytes % 24.7 (21.8-53.1) % Monocytes % 8.0 (5.3-12.2) % Eosinophils % 0.2 L (0.8-7.0) % Basophils % 0.4 (0.2-1.2) % Absolute Granulocytes 8.33 H (1.78-5.38) x10^3/uL Basophils # 0.05 (0.01-0.08) x10^3/uL APTT 62.5 H 67.8 H (25.1-36.5) SECONDS Sodium (135-145) mmol/L Potassium (3.5-5.1) mmol/L Chloride (98-107) mmol/L Carbon Dioxide (22-30) mmol/L Anion Gap (5-15) MEQ/L BUN (9-20) mg/dL Creatinine (0.66-1.25) mg/dL Estimated GFR ML/MIN Glucose (74-106) mg/dL Calcium (8.4-10.2) mg/dL Total Bilirubin (0.2-1.3) mg/dL AST (17-59) U/L ALT (0-50) U/L Alkaline Phosphatase (38-126) U/L Serum Total Protein (6.3-8.2) g/dL Albumin (3.5-5.0) g/dL 01/22/24 01/22/24 01/22/24 Range/Units 04:56 04:56 10:05 WBC (4.23-9.07) x10^3/uL RBC (4.63-6.08) x10^6/uL Hgb (13.7-17.5) g/dL Hct (40.1-51.0) % MCV (79.0-92.2) fL MCH (25.7-32.2) pg MCHC (32.3-36.5) g/dL RDW (11.6-14.4) % Plt Count (163-337) x10^3/uL MPV (9.4-12.4) fL Gran % (34.0-67.9) % Immature Gran % (Auto) (0.001-0.429) % Nucleat RBC Rel Count (0.00-0.2) % Eos # (Auto) (0.04-0.54) x10^3/uL Immature Gran # (Auto) (0.001-0.031) x10^3u/L Absolute Lymphs (auto) (1.32-3.57) x10^3/uL Absolute Monos (auto) (0.30-0.82) x10^3/uL Absolute Nucleated RBC (0.00-0.012) x10^3u/L Lymphocytes % (21.8-53.1) % Monocytes % (5.3-12.2) % Eosinophils % (0.8-7.0) % Basophils % (0.2-1.2) % Absolute Granulocytes (1.78-5.38) x10^3/uL Basophils # (0.01-0.08) x10^3/uL APTT 86.0 H 71.5 H (25.1-36.5) SECONDS Sodium 132 L (135-145) mmol/L Potassium 4.4 (3.5-5.1) mmol/L Chloride 95 L (98-107) mmol/L Carbon Dioxide 29 (22-30) mmol/L Anion Gap 13.0 (5-15) MEQ/L BUN 28 H (9-20) mg/dL Creatinine 0.58 L (0.66-1.25) mg/dL Estimated GFR 98.6 ML/MIN Glucose 116 H (74-106) mg/dL Calcium 9.3 (8.4-10.2) mg/dL Total Bilirubin 0.40 (0.2-1.3) mg/dL AST 72 H (17-59) U/L ALT 57 H (0-50) U/L Alkaline Phosphatase 138 H (38-126) U/L Serum Total Protein 6.4 (6.3-8.2) g/dL Albumin 3.9 (3.5-5.0) g/dL 01/22/24 Range/Units 14:08 WBC (4.23-9.07) x10^3/uL RBC (4.63-6.08) x10^6/uL Hgb (13.7-17.5) g/dL Hct (40.1-51.0) % MCV (79.0-92.2) fL MCH (25.7-32.2) pg MCHC (32.3-36.5) g/dL RDW (11.6-14.4) % Plt Count (163-337) x10^3/uL MPV (9.4-12.4) fL Gran % (34.0-67.9) % Immature Gran % (Auto) (0.001-0.429) % Nucleat RBC Rel Count (0.00-0.2) % Eos # (Auto) (0.04-0.54) x10^3/uL Immature Gran # (Auto) (0.001-0.031) x10^3u/L Absolute Lymphs (auto) (1.32-3.57) x10^3/uL Absolute Monos (auto) (0.30-0.82) x10^3/uL Absolute Nucleated RBC (0.00-0.012) x10^3u/L Lymphocytes % (21.8-53.1) % Monocytes % (5.3-12.2) % Eosinophils % (0.8-7.0) % Basophils % (0.2-1.2) % Absolute Granulocytes (1.78-5.38) x10^3/uL Basophils # (0.01-0.08) x10^3/uL APTT 56.9 H (25.1-36.5) SECONDS Sodium (135-145) mmol/L Potassium (3.5-5.1) mmol/L Chloride (98-107) mmol/L Carbon Dioxide (22-30) mmol/L Anion Gap (5-15) MEQ/L BUN (9-20) mg/dL Creatinine (0.66-1.25) mg/dL Estimated GFR ML/MIN Glucose (74-106) mg/dL Calcium (8.4-10.2) mg/dL Total Bilirubin (0.2-1.3) mg/dL AST (17-59) U/L ALT (0-50) U/L Alkaline Phosphatase (38-126) U/L Serum Total Protein (6.3-8.2) g/dL Albumin (3.5-5.0) g/dL Micro Results-Entire Visit: Microbiology 01/17/24 17:24 Blood Culture - Final Blood 01/17/24 17:24 Blood Culture - Final Blood - Procedures and Test Procedures and Tests throughout Hospitalization: Therapy Orders & Screens 01/17/24 16:58 Respiratory Therapy Assessment DAILY Comment: 01/17/24 22:59 Oxygen Nasal Cannula 4 lpm Comment: Respiratory Therapy Consult ONCE Comment: Reason For Exam: 01/17/24 23:42 EKG ROUTINE Comment: Diagnosis: shortness of breath 01/17/24 23:51 RT Screen per Nursing Assess ONCE Comment: Protocol Order Physician Instructions: Greater than 3 points order RT Admission Screen Reason For Exam: Triggered on Admission Diagnosis: shortness of breath Diagnosis: shortness of breath Pneumonia: Yes Home O2: No Asthma: No CHF: Yes Home CPAP/BIPAP: No Home Nebs/MDI: No Total Points: 6 01/18/24 01:42 Respiratory Therapy Assessment DAILY Comment: Diagnosis: shortness of breath 01/21/24 10:55 EKG STAT Comment: Diagnosis: ACUTE RESP FAILURE WITH HYPOXIA, 01/22/24 11:49 Incentive Spirometry UD Comment: Diagnosis: ACUTE RESP FAILURE WITH HYPOXIA, Final Diagnosis/Problem List - Final Discharge Diagnosis/Problem (1) Acute respiratory failure with hypoxia Status: Acute Code(s): J96.01 - ACUTE RESPIRATORY FAILURE WITH HYPOXIA (2) CHF exacerbation Status: Acute Code(s): I50.9 - HEART FAILURE, UNSPECIFIED (3) COPD exacerbation Status: Acute Code(s): J44.1 - CHRONIC OBSTRUCTIVE PULMONARY DISEASE W (ACUTE) EXACERBATION (4) Hyponatremia Status: Acute Code(s): E87.1 - HYPO-OSMOLALITY AND HYPONATREMIA (5) Pleural effusion Status: Acute Code(s): J90 - PLEURAL EFFUSION, NOT ELSEWHERE CLASSIFIED (6) Troponin level elevated Status: Acute Code(s): R79.89 - OTHER SPECIFIED ABNORMAL FINDINGS OF BLOOD CHEMISTRY - Discharge Disposition: Against Medical Advice Condition: Stable Prescriptions: No Action Aspirin EC 81 mg [Ecotrin 81 mg] 81 mg PO DAILY Instructions: Oxygen therapy at home Additional Instructions: WEAR 2L/NC 19/01 AT HOME [facility] WILL DELIVER YOUR HOME CONCENTRATOR IN THE NEXT DAY OR 2. [facility] HAS BEEN SET UP FOR YOU. THEY WILL CALL YOU TO ARRANGE A TIME TO COME SEE YOU. THEIR PHONE NUMBER IS [phone] IF YOU NEED ANYTHING BEFORE THEIR FIRST VISIT. Follow up with: LEAH PICKARD [CONSULTING PHYSICIAN] - 01/28/24 10:45 am (T.H.Office) VIDHYA PACHECO MD [Primary Care Provider] - 01/29/24 2:45 pm
[2024-01-24 11:41] LABS: Osmolality, Urine 456 mOsmol/kg (.)
[2024-01-24 13:09] LABS: Osmolality-Se/Pl 282 mOsmol/kg (280-301)
== END 2024-01-22 17:05 | disposition left against medical advice (07) | DRG 189 ==
LOC: ED 16:42 → MED SURG 22:51 → OBSVTOIN 01-18 05:43 → ICU 01-21 11:00
PROVIDERS: ADMIT Internal Medicine Nephrology; ATTEND Internal Medicine Nephrology
DX: J96.01 Acute respiratory failure with hypoxia (principal); J44.1 Chronic obstructive pulmonary disease with (acute) exacerbation; E87.1 Hypo-osmolality and hyponatremia; J90 Pleural effusion, not elsewhere classified; I48.20 Chronic atrial fibrillation, unspecified; I11.0 Hypertensive heart disease with heart failure; I50.9 Heart failure, unspecified; R79.89 Other specified abnormal findings of blood chemistry; C61 Malignant neoplasm of prostate; F17.200 Nicotine dependence, unspecified, uncomplicated; D72.829 Elevated white blood cell count, unspecified; Z79.899 Other long term (current) drug therapy
CPT/HCPCS: 0241U; 36000; 36415; 36600; 71045; 71260; 80048; 80053; 80061; 82375; 82803; 83605; 83721; 83735; 83880; 83930; 83935; 84300; 84443; 84484; 85025; 85027; 85379; 85610; 85730; 87040; 93005; 93041; 93268; 93306; 94640; 94762; 96365; 96374; 99285; 99291; G0378; Q3014; J0282; J0456; J0696; J1160; J1644; J1650; J1940; J2919; A9270-GY